=== PATIENT | male | born 1980 | race African-American/Black ===

== ENCOUNTER 2024-09-11 15:54 | Inpatient (IN) | payer SELFPAY ==
[2024-09-11] VITALS (49 sets, daily range): BP systolic 148–232; BP diastolic 87–186; PULSE 60–143; RESP 9–33; TEMP 36.6–36.8; O2SAT 92–100; BMI 32.5
--- NOTE | ~2024-09-11 | XR_ITS ---
HISTORY: rib pain, fall COMPARISON: None TECHNIQUE: 3 views of the right ribs were performed along with a frontal view of the chest. FINDINGS: The cardiomediastinal silhouette is enlarged. Loop recorder projects to the left of midline. The lungs are clear. No acute displaced fracture is appreciated. Bone mineralization is age-appropriate. IMPRESSION: No acute displaced right-sided rib fracture. The lungs are clear. Reviewed, dictated and finalized at location A. OWAVE SUPERVISOR
--- NOTE | ~2024-09-11 | CT_ITS ---
CTA brain carotid Ordering provider: Erin Snow PA-C History: . left diplopia . Comparison: None Technique: CT angiogram head and neck was performed following timed intravenous injection of contrast . Thin slice axial images and reformatted coronal images were obtained. Three dimensional reformatted images of the brain were also obtained using a [employer] workstation. DLP: 1059 mGy-cm FINDINGS: HEAD: --ANTERIOR AND MIDDLE CEREBRAL ARTERIES AND BRANCHES: Normal caliber and contour. --INTERNAL CAROTID ARTERIES: Mild atheromatous disease but no significant stenosis. No occlusion. --BASILAR ARTERY AND BRANCHES: Normal caliber and contour. No atheromatous disease. --POSTERIOR CEREBRAL ARTERIES: Normal caliber and contour --POSTERIOR COMMUNICATING ARTERIES: Not well visualized likely related to congenital absence or small size. --ANEURYSM: None visualized. --BRAIN: Please refer to report of CT head performed the same day. --BONES AND SUPERFICIAL SOFT TISSUES: Please refer to report of CT head performed the same day. --PARANASAL SINUSES AND MASTOIDS: Please refer to report of CT head done the same day. NECK: --RIGHT CERVICAL CAROTID SYSTEM: No significant atheromatous disease of the carotid bulb and proximal internal carotid artery.. Percent stenosis per NASCET criteria is 0%. No carotid dissection. --LEFT CERVICAL CAROTID SYSTEM: No significant atheromatous disease of the carotid bulb and proximal internal carotid artery. Percent stenosis per NASCET criteria is 0%. No carotid dissection. --VERTEBRAL ARTERIES: Normal caliber and contour. --VISUALIZED AORTIC ARCH AND BRANCHING VESSELS: Mild atheromatous disease but no significant stenosis . --SOFT TISSUES: Unremarkable --CERVICAL SPINE: No significant degenerative disease. IMPRESSION: 1. Unremarkable CTA head and neck. Percent stenosis per NASCET criteria is 0% Reviewed, dictated and finalized at location A. GER SCIENCE
--- NOTE | ~2024-09-11 | CT_ITS ---
History: Left-sided double vision PROCEDURE: CT head without contrast. COMPARISON: None TECHNIQUE: Axial imaging of the head performed from the skull base to the vertex without IV contrast. Sagittal a nd coronal reformations obtained. DLP: 605 mGy-cm FINDINGS: The ventricles are normal in size, shape and position. Cavum septum pellucidum is incidentally noted. Decreased attenuation is identified within the periventricular white matter, likely secondary to micr ovascular ischemic disease, far advanced in a patient of this age. Decreased attenuation is identifie d within the left occipital lobe, findings suggesting prior cerebral infarction. There is no mass, mass effect or midline shift. There is no abnormal extra-axial fluid collection or intracranial hemorrhage. Visualized paranasal sinuses are clear. The mastoid air cells are well aerated. No acute displaced fractures within the overlying cranium. Impression: No acute intracranial hemorrhage or suspicious mass effect. Findings within the periventricular white matter, far advanced in a patient of this age. Prior cerebral infarction within the left occipital lobe. Reviewed, dictated and finalized at location A. ICAL REHAB SPECIALIST Impression: No acute intracranial hemorrhage or suspicious mass effect. Findings within the periventricular white matter, far advanced in a patient of this age. Prior cerebral infarction within the left occipital lobe.
--- OUTSIDE RECORDS SUMMARY | 2024-09-11 15:56 | XMS_ITS ---
Author Organization [facility] Address [address] [place] [address] Care Team Providers Care Crocheter Name Role Phone ADRIAN QUEEN MD Primary Care Provider [phone] ZO GALLAGHER [phone] REASON FOR VISIT 3 month f/u Encounters Encounter Location Date Provider Diagnosis [facility] [address] [id number] 07/19/2023 ZO ACOSTA Plan Of Treatment No Information Progress Notes * SKINNY CHICASDOB:1980 (43 yo M)Acc No.[id number]:07/19/2023 Progress Notes Patient: SKINNY COOLEY Provider: Chris Martinez NP :1980 A ge:42 Y S ex:Male Date:07/19/2023 Address:[address] [id number] Pcp:ADRIAN QUEEN MD Subjective: * Chief Complaints: * 1 . 3 month f/u. * Medical History: Objective: * Vitals: Assessment: Plan: * Treatment: * Billing Information: * Visit Code: * Procedure Codes: * Electronic signature of DAVE CASTILLO on 09/11/2024 at 03:56 PM KLYSTROM TUBE TESTER Sign off status: Pending * Provider: Chris Martinez, DIANA Date: 1 09/19/2022 Generated for Isa power/Jean/Erika on: 0 09/11/2024 03:56 PM KLYSTROM TUBE TESTER
--- OUTSIDE RECORDS SUMMARY | 2024-09-11 15:56 | XMS_ITS | Patient Health Record ---
Author Organization [facility] Address [address] [place] [address] Care Team Providers Care Desk Assistant Name Role Phone ADRIAN QUEEN MD Primary Care Provider [phone] Allergies No Known Allergies Reason For Referral No Information Medications Medication SIG (Take, Route, Frequency, Duration) Notes Start Date End Date Status Lisinopril-hydroCHL OROthiazide 20-12.5 MG 1 tablet Orally Once a day for [address] ADRIAN QUEEN Active Coreg 12.5 MG 1 tablet with food Orally Twice a day for [address] ADRIAN QUEEN Active Social History Tobacco Use: Social History Observation Description Date Details (start date - stop date) Never Smoker NA - NA Tobacco Use/Smoking Question Answer Notes Tobacco use: nonsmoker Problems Problem Type SNOMED Code ICD Code Onset Dates Problem Status W/U Status Risk Notes Problem 50963728820084 Morbid (severe) obesity due to excess calories (E66.01) Active confirmed Problem 77759798 Essential (primary) hypertension (I10) Active confirmed Problem [id number] Body mass index [BMI] 40.0-44.9, adult (Z68.41) Active confirmed Plan Of Treatment No Information Medical (General) History Medical History History ICD Code hypertension, obesity Surgical History Surgery Date(Month/Year) denies
--- NOTE | 2024-09-11 16:01 | ECG_ITS ---
Test Date: 2024-09-11 16:11:20 Measurements Intervals [place] Rate: 91 P: 23 NM: 149 QRS: -20 QRSD: 94 T: 145 QT: 370 QTc: 455 Interpretive Statements SINUS RHYTHM LEFT ATRIAL ENLARGEMENT LEFT VENTRICULAR HYPERTROPHY AND ST-T CHANGE BORDERLINE R WAVE PROGRESSION, ANTERIOR LEADS BORDERLINE T WAVE ABNORMALITY- INFERIOR LEADS BASELINE ARTIFACT- I, II, III, AVR, AVL, AVF, V1, V3 BORDERLINE ECG No previous ECG available for comparison Electronically Signed On 09-11-2024 16:13:16 TAX COMPLIANCE REPRESENTATIVE by Addy Ladd D.O.
--- NOTE | 2024-09-11 16:03 | ED_ITS ---
HPI - Fall General Chief Complaint: Fall <Erin Snow PA-C - Last Filed: 09/13/24 17:00> Stated Complaint: fall <Erin Snow PA-C - Last Filed: 09/13/24 17:00> Time Seen by Provider: 09/11/24 17:03 <Erin Snow PA-C - Last Filed: 09/13/24 17:00> Focused HPI: 43-year-old male with a history of CVA in June of 2023 and untreated hypertension presents to the emergency department with mother at bedside for a fall that occurred last night and left side vision changes. Patient states he fell in the bathroom around 9:00 p.m. after slipping and falling, injuring his right ribs. He did not hit his head or lose consciousness. Denies other injuries acquired. States he went to bed the side around 11 or 12:00 p.m. in his normal state of health but when he woke up this morning he noticed diplopia in the left eye which is been new. Denies other neurologic deficits including focal numbness or weakness. Denies chest pain or shortness of breath, abdominal pain. He states he stopped taking his medications approximately 5 months ago after he moved in with his mother. GENERAL: Well-appearing, well-nourished, and in no acute distress. HEAD: Normocephalic, atraumatic. CHEST: Clear to auscultation. ?No respiratory distress. HEART: Regular rate and rhythm.? NEURO: ?Alert and oriented x3. Patient screened in triage and initial orders placed.? ?Additional care and disposition to be based upon?diagnostic testing and treatment. <Erin Snow PA-C - Last Filed: 09/13/24 17:00> Focused HPI: 43-year-old male with a history of CVA in June of 2023 and untreated hypertension presents to the emergency department with mother at bedside for a fall that occurred last night and left side vision changes. Patient states he fell in the bathroom around 9:00 p.m. after slipping and falling, injuring his right ribs. He did not hit his head or lose consciousness. Denies other injuries acquired. States he went to bed the side around 11 or 12:00 p.m. in his normal state of health but when he woke up this morning he noticed diplopia in the left eye which is been new. Denies other neurologic deficits including focal numbness or weakness. Denies chest pain or shortness of breath, abdominal pain. He states he stopped taking his medications approximately 5 months ago after he moved in with his mother. GENERAL: Well-appearing, well-nourished, and in no acute distress. HEAD: Normocephalic, atraumatic. CHEST: Clear to auscultation. ?No respiratory distress. HEART: Regular rate and rhythm.? NEURO: ?Alert and oriented x3. Patient screened in triage and initial orders placed.? ?Additional care and disposition to be based upon?diagnostic testing and treatment. <Gege Valdovinos PA-C - Last Filed: 09/11/24 20:51> Related Data Home Medications: Home Medications ?Medication ?Instructions ?Recorded ?Confirmed ?Last Taken ?Type No Home Medications 09/11/24 09/11/24 Unknown History <Erin Snow PA-C - Last Filed: 09/13/24 17:00> Allergies/Adverse Reactions: Allergies Allergy/AdvReac Type Severity Reaction Status Date / Time No Known Allergies Allergy Verified 09/11/24 23:02 <Erin Snow PA-C - Last Filed: 09/13/24 17:00> Review of Systems 2 Review of Systems: CONSTITUTIONAL: Denies fever EYES: Reports visual changes. Denies redness, or discharge. CARDIOVASCULAR: Denies chest pain, or edema. RESPIRATORY: Denies dyspnea. GASTROINTESTINAL: Denies vomiting NEUROLOGIC: Denies numbness, or weakness. <Gege Valdovinos PA-C - Last Filed: 09/11/24 20:51> All systems reviewed & are unremarkable except as noted in HPI and below < Gege Valdovinos PA-C - Last Filed: 09/11/24 20:51> PMFSH Past Medical History Medical History: Medical History (Updated 09/11/24 @ 20:48 by Gege Valdovinos PA-C) History of stroke History of hyperlipidemia History of hypertension <Erin Snow PA-C - Last Filed: 09/13/24 17:00> Family History Family History: Family History Mother Hypertension Father Diabetes mellitus Sibling No active medical problems Sibling Congestive heart failure <Erin Snow PA-C - Last Filed: 09/13/24 17:00> Social History Social History: Social History (Updated 09/11/24 @ 17:39 by Gege Valdovinos PA-C) Smoking status: Never smoker Second hand tobacco smoke exposure: No Alcohol intake: never Substance use: never Substance use type: does not use Do You Feel Safe in your Home?: Yes Lack of Transportation: YES Lack of Food: Never True Current Housing: I Have Housing Concerned About Future Housing: No Difficulty Paying Gas/Electric Bills: No Difficulty Paying for Meds: YES Currently Unemployed: No Education: High School Diploma/GED Difficulty w/ Childcare or Family Care: No Spiritual care concerns: No <Erin Snow PA-C - Last Filed: 09/13/24 17:00> Exam 2 Narrative: GENERAL: Well-appearing, well-nourished, and in no acute distress. HEAD: Normocephalic, atraumatic. EYES: PERRLA and EOMI. ENT: Nares clear, no rhinorrhea or epistaxis. Mucous membranes moist. Oropharynx without tonsillar hypertrophy exudate or other lesions. Bilateral TMs pearly ruano non-bulging NECK: Supple. No adenopathy or masses. CHEST: Clear to auscultation. No respiratory distress. No wheezes rales or rhonchi HEART: Regular rate and rhythm. No murmur heard. Normal peripheral pulses. EXTREMITIES: Normal range of motion. No edema or obvious deformity. Strength equal in bilateral upper and lower extremities (5/5) SKIN: Warm, dry, no rash. NEURO: No focal deficits. Alert and oriented x3. Cranial nerves 2-12 grossly intact PSYCH: Normal mood and affect <Gege Valdovinos PA-C - Last Filed: 09/11/24 20:51> Course Course Emergency Course: Patient and family updated on workup and need for admission <Gege Valdovinos PA-C - Last Filed: 09/11/24 20:51> Consultations Consultation #1: Spoke with hospitalist about patient and workup who accepts admission < Gege Valdovinos PA-C - Last Filed: 09/11/24 20:51> Date: 09/11/24 <Gege Valdovinos PA-C - Last Filed: 09/11/24 20:51> Vital Signs Vital signs: Vital Signs Temperature 97.8 F 09/11/24 15:56 Pulse Rate 102 H 09/11/24 15:56 Respiratory Rate 17 09/11/24 15:56 Blood Pressure 232/160 H 09/11/24 15:56 Pulse Oximetry 100 09/11/24 15:56 Oxygen Delivery Room Air 09/11/24 15:56 Temperature 98.0 F 09/13/24 16:45 Pulse Rate 96 09/13/24 16:45 Respiratory Rate 20 09/13/24 16:45 Blood Pressure 163/66 H 09/13/24 16:45 Pulse Oximetry 98 09/13/24 16:45 Oxygen Delivery Room Air 09/13/24 16:00 <Erin Snow PA-C - Last Filed: 09/13/24 17:00> Vital Signs Temperature 97.8 F 09/11/24 15:56 Pulse Rate 102 H 09/11/24 15:56 Respiratory Rate 17 09/11/24 15:56 Blood Pressure 232/160 H 09/11/24 15:56 Pulse Oximetry 100 09/11/24 15:56 Oxygen Delivery Room Air 09/11/24 15:56 Temperature 98.0 F 09/13/24 16:45 Pulse Rate 96 09/13/24 16:45 Respiratory Rate 20 09/13/24 16:45 Blood Pressure 163/66 H 09/13/24 16:45 Pulse Oximetry 98 09/13/24 16:45 Oxygen Delivery Room Air 09/13/24 16:00 <Gege Valdovinos PA-C - Last Filed: 09/11/24 20:51> MDM - Fall MDM Narrative Medical decision making narrative: Patient presents to the emergency department after a fall yesterday. Endorsing some rib pain. He also reports waking up this morning with some blurry vision in the left thigh. He does not believe he hit his head or lost consciousness. Patient has history of hypertension and previous CVA. Reports he has not taken any of his medications over the last 5 months. His blood pressure is elevated to 200 systolic upon arrival. He was given hydralazine and carvedilol with improvement. Most recent blood pressures in the 70s. CBC with mild leukocytosis to 11.4. Metabolic panel with creatinine of 1.74, unsure patient's baseline. EKG without acute ST changes, his baseline troponin is elevated at 0.040. Urine with 2+ protein. CT brain without acute findings. CTA head and neck unremarkable. Chest x-ray without acute cardiopulmonary abnormality or evidence of acute displaced rib fracture. Patient and family updated on workup and need for admission. Spoke with hospitalist about patient and workup who accepts admission <Gege Valdovinos PA-C - Last Filed: 09/11/24 20:51> Differential Diagnosis Differential diagnosis: Likely syncope, concussion with loss of consciousness, concussion without loss of consciousness and other (Subdural hematoma, CVA, electrolyte derangement, arrhythmia, hypertensive urgency, chronic hypertension) <Gege Valdovinos PA-C - Last Filed: 09/11/24 20:51> Lab Data Attestation: I reviewed the patient's lab results. <Gege Valdovinos PA-C - Last Filed: 09/11/24 20:51> Result diagrams: 09/12/24 17:18 09/12/24 17:18 <Erin Snow PA-C - Last Filed: 09/13/24 17:00> Labs: Lab Results 09/11/24 Range/Units 16:18 WBC 11.4 H (4.5-10.0) K/mm3 RBC 5.08 (4.6-6.20) M/mm3 Hgb 13.8 L (14.0-18.0) g/dL Hct 42.6 (42.0-52.0) % MCV 83.9 (80-100) fl MCH 27.2 (26-34) pg MCHC 32.4 (32-36) g/dl RDW 14.1 (11.5-14.5) % Plt Count 301 (150-375) k/mm3 MPV 11.4 H (7.4-10.4) fl Immature Gran % (Auto) 0.3 (0-0.5) % Neut % (Auto) 66.6 (45.5-73.1) % Lymph % (Auto) 22.0 (18.3-44.2) % [place] % (Auto) 8.1 (2.6-8.5) % Eos % (Auto) 2.4 (0-4.4) % Baso % (Auto) 0.6 (0.2-1.2) % Lymph # (Auto) 2.51 (0.9-3.2) K/mm3 [place] # (Auto) 0.9 H (0.1-0.6) K/mm3 Eos # (Auto) 0.3 (0-0.3) K/mm3 Baso # (Auto) 0.1 (0.0-0.1) K/mm3 Abs Immat Gran (auto) 0.03 (0.00-0.031) K/mm3 Absolute Neuts (auto) 7.6 H (1.3-6.7) K/mm3 Absolute Nucleated RBC 0.000 (0.0-0.012) K/mm3 Nucleated RBC % 0.0 (0.0-0.2) % PT 14.3 (11.1-14.7) Seconds INR 1.1 APTT 44.9 H (22.3-36.8) Seconds Sodium 140 (137-145) mmol/L Potassium 3.4 (3.4-5.0) mmol/L Chloride 102 (98-107) mmol/L Carbon Dioxide 30 (22-30) mmol/L Anion Gap 8 (4-12) mmol/L BUN 16 (9-20) mg/dL Creatinine 1.74 H (0.7-1.3) mg/dL Estim Creat Clear Calc Not Reportable Estimated GFR 52 L (59 - ) Glucose 108 (65-110) mg/dL POC Capillary Glucose 108 H (65-105) mg/dl Calcium 9.0 (8.4-10.2) mg/dL Total Bilirubin 0.7 (0.2-1.3) mg/dL AST 19 (17-59) U/L ALT 27 (6-50) U/L Alkaline Phosphatase 85 (38-126) U/L Troponin I 0.040 H* (0.000-0.034) ng/mL Total Protein 8.0 (6.3-8.2) g/dL Albumin 4.0 (3.5-5.1) g/dL Urine Color Yellow (Yellow) Urine Appearance Cloudy H (Clear) Urine pH 7.5 (5.0-9.0) Ur Specific [place] 1.020 (1.001-1.035) Urine Protein 2+ H (Negative) mg/dL Urine Glucose (UA) Negative (Negative) mg/dL Urine Ketones Negative (Negative) mg/dL Ur Blood (Man) Negative (Negative) Urine Nitrate Negative (Negative) Urine Bilirubin Negative (Negative) Urine Urobilinogen 0.2 (<2.0) mg/dL Leukocyte Esterase Rfl Negative (Negative) TYLER/UL Urine RBC 0-2 (0-2) /hpf Urine WBC 0-5 (0-3) /hpf Ur Squamous Epith Cells None seen (Few) /hpf Urine Bacteria None seen /hpf Urine Casts 3-5 Ur Random Sodium 114 meq/L Urine Creatinine 126.7 mg/dL Urine Opiates Screen Negative (Negative) Urine Methadone Screen Negative (Negative) Ur Barbiturates Screen Negative (Negative) Ur Phencyclidine Scrn Negative (Negative) Ur Amphetamine Screen Negative (Negative) U Benzodiazepines Scrn Negative (Negative) Urine Cocaine Screen Negative (Negative) U Cannabinoids Screen Negative (Negative) <Erin Snow PA-C - Last Filed: 09/13/24 17:00> Lab Results 09/11/24 Range/Units 16:18 WBC 11.4 H (4.5-10.0) K/mm3 RBC 5.08 (4.6-6.20) M/mm3 Hgb 13.8 L (14.0-18.0) g/dL Hct 42.6 (42.0-52.0) % MCV 83.9 (80-100) fl MCH 27.2 (26-34) pg MCHC 32.4 (32-36) g/dl RDW 14.1 (11.5-14.5) % Plt Count 301 (150-375) k/mm3 MPV 11.4 H (7.4-10.4) fl Immature Gran % (Auto) 0.3 (0-0.5) % Neut % (Auto) 66.6 (45.5-73.1) % Lymph % (Auto) 22.0 (18.3-44.2) % [place] % (Auto) 8.1 (2.6-8.5) % Eos % (Auto) 2.4 (0-4.4) % Baso % (Auto) 0.6 (0.2-1.2) % Lymph # (Auto) 2.51 (0.9-3.2) K/mm3 [place] # (Auto) 0.9 H (0.1-0.6) K/mm3 Eos # (Auto) 0.3 (0-0.3) K/mm3 Baso # (Auto) 0.1 (0.0-0.1) K/mm3 Abs Immat Gran (auto) 0.03 (0.00-0.031) K/mm3 Absolute Neuts (auto) 7.6 H (1.3-6.7) K/mm3 Absolute Nucleated RBC 0.000 (0.0-0.012) K/mm3 Nucleated RBC % 0.0 (0.0-0.2) % PT 14.3 (11.1-14.7) Seconds INR 1.1 APTT 44.9 H (22.3-36.8) Seconds Sodium 140 (137-145) mmol/L Potassium 3.4 (3.4-5.0) mmol/L Chloride 102 (98-107) mmol/L Carbon Dioxide 30 (22-30) mmol/L Anion Gap 8 (4-12) mmol/L BUN 16 (9-20) mg/dL Creatinine 1.74 H (0.7-1.3) mg/dL Estim Creat Clear Calc Not Reportable Estimated GFR 52 L (59 - ) Glucose 108 (65-110) mg/dL POC Capillary Glucose 108 H (65-105) mg/dl Calcium 9.0 (8.4-10.2) mg/dL Total Bilirubin 0.7 (0.2-1.3) mg/dL AST 19 (17-59) U/L ALT 27 (6-50) U/L Alkaline Phosphatase 85 (38-126) U/L Troponin I 0.040 H* (0.000-0.034) ng/mL Total Protein 8.0 (6.3-8.2) g/dL Albumin 4.0 (3.5-5.1) g/dL Urine Color Yellow (Yellow) Urine Appearance Cloudy H (Clear) Urine pH 7.5 (5.0-9.0) Ur Specific [place] 1.020 (1.001-1.035) Urine Protein 2+ H (Negative) mg/dL Urine Glucose (UA) Negative (Negative) mg/dL Urine Ketones Negative (Negative) mg/dL Ur Blood (Man) Negative (Negative) Urine Nitrate Negative (Negative) Urine Bilirubin Negative (Negative) Urine Urobilinogen 0.2 (<2.0) mg/dL Leukocyte Esterase Rfl Negative (Negative) TYLER/UL Urine RBC 0-2 (0-2) /hpf Urine WBC 0-5 (0-3) /hpf Ur Squamous Epith Cells None seen (Few) /hpf Urine Bacteria None seen /hpf Urine Casts 3-5 Ur Random Sodium 114 meq/L Urine Creatinine 126.7 mg/dL Urine Opiates Screen Negative (Negative) Urine Methadone Screen Negative (Negative) Ur Barbiturates Screen Negative (Negative) Ur Phencyclidine Scrn Negative (Negative) Ur Amphetamine Screen Negative (Negative) U Benzodiazepines Scrn Negative (Negative) Urine Cocaine Screen Negative (Negative) U Cannabinoids Screen Negative (Negative) <GUTIERREZ Cameron Last Filed: 09/11/24 20:51> Imaging Data Radiologist's impression: ITS Impressions Ribs w/Chest X-Ray 09/11/24 17:11 IMPRESSION: No acute displaced right-sided rib fracture. The lungs are clear. Head CT 09/11/24 18:26 Impression: No acute intracranial hemorrhage or suspicious mass effect. Findings within the periventricular white matter, far advanced in a patient of this age. Prior cerebral infarction within the left occipital lobe. Head/Neck CTA 09/11/24 18:39 IMPRESSION: 1. Unremarkable CTA head and neck. Percent stenosis per NASCET criteria is 0% <GUTIERREZ Cameron Last Filed: 09/11/24 20:51> Critical Care Time Critical Care Time Critical Care Time: Yes <GUTIERREZ Cameron Last Filed: 09/11/24 20:51> Total Critical Care Time: 35 <GUTIERREZ Cameron Last Filed: 09/11/24 20:51> Discharge Plan Discharge Clinical Impression: Hypertensive urgency <GUTIERREZ Kilgore Last Filed: 09/13/24 17:00> Patient Disposition: Still a Patient <GUTIERREZ Kilgore Last Filed: 09/13/24 17:00> Condition: Serious <Erin Snow PA-C - Last Filed: 09/13/24 17:00>
[2024-09-11 16:21] LABS: Glucose Point of Care 108 mg/dl (65-105)
[2024-09-11 16:32] LABS: Basophils Absolute Auto 0.1 K/mm3 (0.0-0.1); Basophils Percent Auto 0.6 % (0.2-1.2); Eosinophils Absolute Auto 0.3 K/mm3 (0-0.3); Eosinophils Percent Auto 2.4 % (0-4.4); Hematocrit 42.6 % (42.0-52.0); Hemoglobin 13.8 g/dL (14.0-18.0); Immature Granulocyte Absolute 0.03 K/mm3 (0.00-0.031); Immature Granulocyte Percent A 0.3 % (0-0.5); Lymphocytes Absolute Auto 2.51 K/mm3 (0.9-3.2); Mean Corpuscular HGB Conc 32.4 g/dl (32-36); Mean Corpuscular Hemoglobin 27.2 pg (26-34); Mean Corpuscular Volume 83.9 fl (80-100); Mean Platelet Volume 11.4 fl (7.4-10.4); Monocytes Absolute Auto 0.9 K/mm3 (0.1-0.6); Monocytes Percent Auto 8.1 % (2.6-8.5); Neutrophils Absolute Auto 7.6 K/mm3 (1.3-6.7); Neutrophils Percent Auto 66.6 % (45.5-73.1); Platelet Count Result 301 k/mm3 (150-375); Red Blood Count 5.08 M/mm3 (4.6-6.20); Red Cell Distribution Width 14.1 % (11.5-14.5); White Blood Count 11.4 K/mm3 (4.5-10.0)
[2024-09-11 16:44] LABS: INR 1.1; Partial Thromboplastin Time 44.9 Seconds (22.3-36.8); Prothrombin Time 14.3 Seconds (11.1-14.7)
[2024-09-11 16:53] LABS: Alanine Aminotransferase 27 U/L (6-50); Alkaline Phosphatase 85 U/L (38-126); Anion Gap 8 mmol/L (4-12); Aspartate Amino Transferase 19 U/L (17-59); Bilirubin,Total 0.7 mg/dL (0.2-1.3); Blood Urea Nitrogen 16 mg/dL (9-20); Carbon Dioxide 30 mmol/L (22-30); Chloride 102 mmol/L (98-107); Estimated Glomerular Filt Rate 52; Glucose 108 mg/dL (65-110); Potassium 3.4 mmol/L (3.4-5.0); Sodium 140 mmol/L (137-145)
[2024-09-11] MEDS: hydrALAZINE HCL 20 MG/ML VIAL 10 MG IV PUSH ×2 (17:40→20:05)
[2024-09-11 18:15] LABS: Add Urine Microscopic? YES; Appearance Urine Cloudy (Clear); Bacteria Urine None Seen /hpf; Bilirubin Urine Negative (Negative); Blood Urine Negative (Negative); Color Urine Yellow (Yellow); Glucose Urine UA Negative (Negative); Ketones Urine Negative (Negative); Leukocyte Esterase Ur Negative LEU/UL (Negative); Nitrate Urine Negative (Negative); Protein Urine 2+ mg/dL (Negative); RBC Urine 0-2 /hpf (0-2); Squamous Epithelial Cell Urine None Seen /hpf (Few); Urobilinogen Urine 0.2 mg/dL (<2.0); WBC Urine 0-5 /hpf (0-3); pH Urine 7.5 (5.0-9.0)
--- OUTSIDE RECORDS SUMMARY | 2024-09-11 18:19 | XMS_ITS | Referral Summary ---
Author Organization [facility] [employer] Address [address] [place] [place] [address] Care Team Providers Care Director Community Health Nursing Name Role Phone Unavailable Primary Care Provider Unavailabl e Source Comments [facility] [employer],non-owned Affiliates and Associated Physician Practices is amultiple site organization consisting of ambulatory clinics and hospital sitesin [place], [place], [place] and [place]. This disclosure is being madepursuant to the Care Everywhere program and may not contain all information available regarding this patient. Last updated 18.[employer] Allergies No known active allergies Medications * Be aware that medications may not be up to date on this document. Alwaysverify current medications with the patient. Medication Sig Dispensed Refills Start Date End Date Status amLODIPine (NORVASC) 5 MG tablet Take 1 tablet by mouth once daily 30 tablet 02/01/2019 Active omeprazole (PRILOSEC) 20 MG capsule Take 1 capsule by mouth once daily 30 capsule 02/01/2019 Active benzonatate (TESSALON) 200 MG capsule Take 1 capsule by mouth 3 times daily as needed for Cough 30 capsule 10/11/2019 Active Additional Information Patient not taking.Reported on 08/02/2022 guaiFENesin-dextro methorphan (ROBITUSSIN-DM) 10-100 MG/5ML syrup Take 5 mL by mouth every 6 hours as needed for Cough 237 mL 10/11/2019 Active Additional Information Patient not taking.Reported on 08/02/2022 lisinopril-hydroCH LOROthiazide (PRINZIDE; ZESTORETIC) 10-12.5 MG tablet Take 1 (one) tablet by mouth once daily 60 tablet 11/24/2020 Active Additional Information Patient not taking.Reported on 08/02/2022 carvedilol (COREG) 12.5 MG tablet Take 1 (one) tablet by mouth 2 times daily with morning and evening meal 120 tablet 11/24/2020 Active Active Problems No known active problems Social History Tobacco Use Types Packs/Day Years Used Date Smoking Tobacco: Never Smokeless Tobacco: Never Tobacco Cessation:Counseling Given: Not Answered Alcohol Use Standard Drinks/Week Comments Never 0 (1 standard drink = 0.6 oz pur e alcohol) Sex and Gender Information Value Date Recorded Sex Assigned at Not on file Gender Identity Not on file Sexual Orientation Not on file Last Filed Vital Signs Vital Sign Reading Time Taken Comments Blood Pressure 153/101 08/02/2022 10:10 AM [employer] unable tot guillermo bp med today Pulse 97 08/02/2022 10:07 AM [employer] Temperature 37.6 C (99.7 F) 08/02/2022 10:07 AM [employer]ER Respiratory Rate 20 08/02/2022 10:0 7 AM [employer] Oxygen Saturation 97% 08/02/2022 10: 07 AM [employer]ER Inhaled Oxygen Concentration - - Weight 94.8 kg (209 lb) 08/02/2022 10:0 7 AM [employer] Height 165.1 cm (5' 5 ) 08/02/2022 10:0 7 AM [employer]ER Body Mass Index 34.78 08/02/2022 10:07 AM [employer]ER Plan of Treatment Not on file Procedures Procedure Name Priority Date/Time Associated Diagnosis Comments COMPREHENSIVE METABOLIC PANEL STAT 11/24/2020 10:28 AM CDT from Last 3 Months or Most Recently Relevant to Health Maintenance Results * (ABNORMAL) COMPREHENSIVE METABOLIC PANEL (11/24/2020 10:28 AM CDT) Glucose 110(H) 70 - 105 mg/dL 11/24/2020 10:59 AM CDT [facility] Sodium 142 136 - 145 mmol/L 11/24/2020 10:59 AM CDT [facility] Potassium 3.3(L) 3.5 - 5.1 mmol/L 11/24/2020 10:59 AM CDT [facility] Chloride 104 98 - 107 mmol/L 11/24/2020 10:59 AM CDT [facility] CO2 28 23 - 31 mmol/L 11/24/2020 10:59 AM CDT [facility] Calcium 9.0 8.4 - 10.4 mg/dL 11/24/2020 10:59 AM CDT [facility] Anion Gap 10 8 - 18 mmol/L 11/24/2020 10:59 AM CDT [facility] Comment:Attention clinician: Reference Range change. BUN 16 8.9 - 20.6 mg/dL 11/24/2020 10:59 AM CDT [facility] Creatinine 1.40(H) 0.72 - 1.25 mg/dL 11/24/2020 10:59 AM CDT [facility] Alkaline Phosphatase 66 40 - 150 U/L 11/24/2020 10:59 AM CDT [facility] Comment:Attention clinician: Reference Range change. ALT 26 0 - 61 U/L 11/24/2020 10:59 AM CDT [facility] AST 15 5 - 34 U/L 11/24/2020 10:59 AM CDT [facility] Protein Total 7.9 6.4 - 8.3 gm/dL 11/24/2020 10:59 AM CDT [facility] Albumin 3.8 3.5 - 5.2 gm/dL 11/24/2020 10:59 AM CDT [facility] Bilirubin Total 0.4 0.2 - 1.2 mg/dL 11/24/2020 10:59 AM CDT [facility] Comment:Attention clinician: Reference Range change. eGFR by MDRD 56(L) >60 mL/min/1.7 3m2 11/24/2020 10:59 AM CDT [facility] eGFR by MDRD >60 >60 mL/min/1.7 3m2 11/24/2020 10:59 AM T [facility] Blood BLOOD SPECIMEN / Unknown Venipuncture / Unknown 11/24/2020 10:28 AM CDT 11/24/2020 10:38 AM CDT Edmundo Dang PA-C LAB - CHEMISTRY MAGDALENA Perrin Organization Address City/State/ZIP Co de Phone Number [facility] [address] [place] [id number] from Last 3 Months or Most Recently Relevant to Health Maintenance
--- OUTSIDE RECORDS SUMMARY | 2024-09-11 18:19 | XMS_ITS | Encounter Summary ---
Author Organization [employer] Address 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
--- OUTSIDE RECORDS SUMMARY | 2024-09-11 18:19 | XMS_ITS | Encounter Summary ---
Author Organization [facility] Address [address] [place] [address] Care Team Providers Care Customer Experience Leader Name Role Phone Lucio Gaona DO Primary Care Provi zaira Reason for Visit * Reason Onset Date Comments Paperwork 07/17/2023 Encounter Details Date Type Department Care Team (Late st Contact Info) Description 07/17/2023 Telephone [facility] - [address] [place] [phone] Lucio Gaona DO [address] [place] [phone] Paperwork (/) Social History Tobacco Use Types Packs/Day Years Used Date Smoking Tobacco: Never Smokeless Tobacco: Never Alcohol Use Standard Drinks/Week Comments Not Currently 0 (1 standard drink = 0.6 oz pur e alcohol) Feeling Safe Answer Date Recorded Are you in a relationship wi th someone who hurts you emotionally and/or physically? 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 States she was told it would be put on the doctor's desk. States they need to get this paperwork back JANEE as he willlose his job if not completed by Saturday. Please call and advise. 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
--- OUTSIDE RECORDS SUMMARY | 2024-09-11 18:19 | XMS_ITS | Clinical Summary ---
Author Organization [facility] Address [address] [facility] [place] [address] Care Team Providers Care Shuttlecock Feather Trimmer Name Role Phone Unavailable Primary Care Provider Unavailabl e Source Comments [employer] [facility],non-owned Affiliates and Associated Physician Practices is amultiple site organization consisting of ambulatory clinics and hospital sitesin [place], [place], [place] and [place]. This disclosure is being madepursuant to the Care Everywhere program and may not contain all information available regarding this patient. Last updated 18.[employer] Allergies No known active allergies Medications * [...] Comments Blood Pressure 153/101 08/02/2022 10:10 AM FRAMING CARPENTER unable tot guillermo bp med today Pulse 97 08/02/2022 10:07 AM FRAMING CARPENTER Temperature 37.6 C (99.7 F) 08/02/2022 10:07 AM FRAMING CARPENTER Respiratory Rate 20 08/02/2022 10:0 7 AM FRAMING CARPENTER Oxygen Saturation 97% 08/02/2022 10: 07 AM FRAMING CARPENTER Inhaled Oxygen Concentration - - Weight 94.8 kg (209 lb) 08/02/2022 10:0 7 AM FRAMING CARPENTER Height 165.1 cm (5' 5 ) 08/02/2022 10:0 7 AM FRAMING CARPENTER Body Mass Index 34.78 08/02/2022 10:07 AM FRAMING CARPENTER Plan of Treatment Health Maintenance Due Date Last Done Comments COLOGUARD (AGES 45-75) - COL ON CA SCREENING 1978 COLON MONITORING 1978 COLONOSCOPY - COLON CA SCREENING 1978 CT COLONOGRAPHY - COLON CA SCREENING 1978 Colorectal Cancer Screening 1978 FIT - COLON CA SCREENING 1978 FLEX SIG - COLON CA SCREENING 1978 LIPID TESTING 1978 HIV SCREENING 1993 HEPATITIS C SCREENING 10/26/1996 DTAP/TDAP/TD VACCINES (1 - Tdap) 1997 HEPATITIS B VACCINE (1 of 3 - 19+ 3-dose series) 1997 SCREENING FOR DIABETES 11/25/2023 , 02/01/2019 COVID-19 VACCINE (3 - 2023-2 5 season) 2024 04/19/2021, 03/23/2021 INFLUENZA VACCINE (#1) 2024 DEPRESSION SCREENING 08/05/2024 ZOSTER VACCINE (1 of 2) 2028 HIB VACCINE Aged Out No longer eligi ble based on patient's age to complete this topic HPV VACCINE Aged Out No longer eligi ble based on patient's age to complete this topic MENINGOCOCCAL (Group B) VACCINE Aged Out No longer eligible b ased on patient's age to complete this topic MENINGOCOCCAL VACCINE Aged Out No jailene jarred eligible based on patient's age to complete this topic PNEUMOCOCCAL VACCINE Aged Out No long er eligible based on patient's age to complete this topic Procedures Procedure Name Priority Date/Time Associated Diagnosis Comments COMPREHENSIVE METABOLIC PANEL STAT 11/24/2020 10:28 AM CDT from Last 3 Months or Most Recently Relevant to Health Maintenance Results * (ABNORMAL) COMPREHENSIVE METABOLIC PANEL (11/24/2020 10:28 AM CDT) Glucose 110(H) 70 - 105 mg/dL 11/24/2020 10:59 AM CDT [facility] Sodium 142 136 - 145 mmol/L 11/24/2020 10:59 AM CDT [facility] Potassium 3.3(L) 3.5 - 5.1 mmol/L 11/24/2020 10:59 AM CDT [facility] Chloride 104 98 - 107 mmol/L 11/24/2020 10:59 AM CDT [facility] CO2 28 23 - 31 mmol/L 11/24/2020 10:59 AM CDT [facility] Calcium 9.0 8.4 - 10.4 mg/dL 11/24/2020 10:59 AM CDT [facility] Anion Gap 10 8 - 18 mmol/L 11/24/2020 10:59 AM CDT [facility] Comment:Attention clinician: Reference Range change. BUN 16 8.9 - 20.6 mg/dL 11/24/2020 10:59 AM CDT [facility] Creatinine 1.40(H) 0.72 - 1.25 mg/dL 11/24/2020 10:59 AM CDT [facility] Alkaline Phosphatase 66 40 - 150 U/L 11/24/2020 10:59 AM CDT [facility] Comment:Attention clinician: Reference Range change. ALT 26 0 - 61 U/L 11/24/2020 10:59 AM CDT [facility] AST 15 5 - 34 U/L 11/24/2020 10:59 AM CDT [facility] Protein Total 7.9 6.4 - 8.3 gm/dL 11/24/2020 10:59 AM CDT [facility] Albumin 3.8 3.5 - 5.2 gm/dL 11/24/2020 10:59 AM CDT [facility] Bilirubin Total 0.4 0.2 - 1.2 mg/dL 11/24/2020 10:59 AM CDT [facility] Comment:Attention clinician: Reference Range change. eGFR by MDRD 56(L) >60 mL/min/1.7 3m2 11/24/2020 10:59 AM CDT [facility] eGFR by MDRD >60 >60 mL/min/1.7 3m2 11/24/2020 10:59 AM CDT [facility] Blood BLOOD SPECIMEN / Unknown Venipuncture / Unknown 11/24/2020 10:28 AM CDT 11/24/2020 10:38 AM CDT Edmundo Dang PA-C LAB - CHEMISTRY [facility] Organization Address City/State/ZIP Co de Phone Number [facility] [address] [place] [id number] from Last 3 Months or Most Recently Relevant to Health Maintenance
--- OUTSIDE RECORDS SUMMARY | 2024-09-11 18:19 | XMS_ITS | Patient Health Summary ---
Author Organization [facility] [employer] Address [address] [place] [address] Care Team Providers Care Interlocker Maintainer Name Role Phone Unavailable Primary Care Provider Unavailabl e Note from [facility] [employer] [facility],non-owned Affiliates and Associated Physician Practices is amultiple site organization consisting of ambulatory clinics and hospital sitesin [place], [place], [place] and [place]. This disclosure is being madepursuant to the Care Everywhere program and may not contain all information available regarding this patient. Last updated 18.[facility] [employer] Allergies No known active allergies Medications * Be aware that medications may not be up to date on this document. Alwaysverify current medications with the patient. * amLODIPine (NORVASC) 5 MG tablet(Started 02/01/2019) Take 1 tablet by mouth once daily * omeprazole (PRILOSEC) 20 MG capsule(Started 02/01/2019) Take 1 capsule by mouth once daily * benzonatate (TESSALON) 200 MG capsule(Started 10/11/2019) Take 1 capsule by mouth 3 times daily as needed for Cough * guaiFENesin-dextromethorphan (ROBITUSSIN-DM) 10-100 MG/5ML syrup(Started 10/11/2019) Take 5 mL by mouth every 6 hours as needed for Cough * lisinopril-hydroCHLOROthiazide (PRINZIDE; ZESTORETIC) 10-12.5 MG tablet (Started 11/24/2020) Take 1 (one) tablet by mouth once daily * carvedilol (COREG) 12.5 MG tablet(Started 11/24/2020) Take 1 (one) tablet by mouth 2 times daily with morning and evening meal Active Problems No known active problems Social [...] Comments Blood Pressure 153/101 08/02/2022 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 unable tot guillermo bp med today Pulse 97 08/02/2022 10:07 AM HOT HEAD MACHINE OPERATOR Temperature 37.6 C (99.7 F) 08/02/2022 10:07 AM HOT HEAD MACHINE OPERATOR Respiratory Rate 20 08/02/2022 10:0 7 AM HOT HEAD MACHINE OPERATOR Oxygen Saturation 97% 08/02/2022 10: 07 AM HOT HEAD MACHINE OPERATOR Inhaled Oxygen Concentration - - Weight 94.8 kg (209 lb) 08/02/2022 10:0 7 AM HOT HEAD MACHINE OPERATOR Height 165.1 cm (5' 5 ) 08/02/2022 10:0 7 AM HOT HEAD MACHINE OPERATOR Body Mass Index 34.78 08/02/2022 10:07 AM HOT HEAD MACHINE OPERATOR Procedures * STREP A SCREEN - POCT (IP) URGENT CARE(Performed 08/02/2022) Performed for Influenza A * INFLUENZA A+B - POCT (IP) URGENT CARE(Performed 08/02/2022) Performed for Influenza A * SARS-COV-2 (COVID-19) AG (IP) POCT(Performed 08/02/2022) Performed for Influenza A * CARDIAC EKG ORDER(Performed 11/28/2020) * CARDIAC EKG ORDER(Performed 11/25/2020) * TROPONIN I(Performed 11/24/2020) * TROPONIN I(Performed 11/24/2020) * ECHOCARDIOGRAM 2D WITH DOPPLER(Performed 11/24/2020) Performed for Elevated brain natriuretic peptide (BNP) level * URINE MICROSCOPIC ONLY(Performed 11/24/2020) * URINALYSIS REFLEX TO MICROSCOPIC NO CULTURE(Performed 11/24/2020) * XR CHEST 1VW PORTABLE(Performed 11/24/2020) Performed for Acute nonintractable headache, unspecified headache type, Chest pain, unspecified type, Hypertension, unspecified type * B-TYPE NATRIURETIC PEPTIDE(Performed 11/24/2020) * TROPONIN I(Performed 11/24/2020) * COMPREHENSIVE METABOLIC PANEL(Performed 11/24/2020) * CBC W AUTO DIFFERENTIAL(Performed 11/24/2020) * CT HEAD WO CONTRAST(Performed 11/24/2020) Performed for Acute nonintractable headache, unspecified headache type, Chest pain, unspecified type, Hypertension, unspecified type * EKG 12-LEAD(Performed 11/24/2020) Performed for Chest pain, unspecified type * INFLUENZA A+B - POCT (IP) URGENT CARE(Performed 10/11/2019) Performed for Strep pharyngitis * STREP A SCREEN - POCT (IP) URGENT CARE(Performed 10/11/2019) Performed for Strep pharyngitis * CARDIAC EKG ORDER(Performed 02/02/2019) * BLOOD TYPE VERIFICATION(Performed 02/01/2019) * TROPONIN I(Performed 02/01/2019) * CT ANGIO CHEST ABDOMEN PELVIS(Performed 02/01/2019) Performed for Abdominal pain, epigastric * TYPE + SCREEN PANEL(Performed 02/01/2019) * TROPONIN I(Performed 02/01/2019) * PTT(Performed 02/01/2019) * PT-INR(Performed 02/01/2019) * LACTIC ACID BLOOD(Performed 02/01/2019) * LIPASE BLOOD(Performed 02/01/2019) * COMPREHENSIVE METABOLIC PANEL(Performed 02/01/2019) * CBC W AUTO DIFFERENTIAL(Performed 02/01/2019) * XR CHEST 1VW PORTABLE(Performed 02/01/2019) Performed for Abdominal pain, epigastric * EKG 12-LEAD(Performed 02/01/2019) Performed for Abdominal pain, epigastric Results * STREP A SCREEN - POCT (IP) URGENT CARE (08/02/2022 10:24 AM HOT HEAD MACHINE OPERATOR) Only the most recent of2 resultswithin the time period is included. Strep A Rapid POCT Negative Negative [facility] QC Verified Yes Yes [facility] Throat ENTIRE THROAT (SURFACE REGION OF NECK) / Unknown 08/02/2022 10:24 AM HOT HEAD MACHINE OPERATOR Radha Chahal BOTTOM SANDER-INDIVIDUALIZED EDUCATION PLAN AIDE LAB - POINT OF CA RE ORDERABLES [facility] [address] [place] [address], [facility] [phone] * (ABNORMAL) INFLUENZA A+B - POCT (IP) URGENT CARE (08/02/2022 10:20 AM HOT HEAD MACHINE OPERATOR) Only the most recent of2 resultswithin the time period is included. Influenza A Antigen Rapid Positive(A) Negative [facility] Influenza B Antigen Rapid Negative Negative [facility] QC Verified Yes Yes [facility] Other SPECIMEN FROM NASAL FOSSAE / Unknown 08/02/2022 10:20 AM HOT HEAD MACHINE OPERATOR Radha Chahal BOTTOM SANDER-INDIVIDUALIZED EDUCATION PLAN AIDE LAB - POINT OF NH RE ORDERABLES [facility] [address] [place] [address], [facility] [phone] * SARS-COV-2 (COVID-19) AG (IP) POCT (08/02/2022 10:14 AM HOT HEAD MACHINE OPERATOR) [facility] SARS-CoV-2 Ag Negative Negative [facility] Lot # [id number] [facility] Expiration Date 02/25/23 [facility] Instrument Serial Number n/a [facility] COVID Internal Control Acceptable Acceptable [facility] Microbiology SPECIMEN FROM NASAL FOSSAE / Unknown 08/02/2022 10:14 AM HOT HEAD MACHINE OPERATOR Narrative [facility] - 08/02/2022 10:31 AM HOT HEAD MACHINE OPERATOR SARS-CoV-2 antigen testing is authorized for use with nasal (Veritor, BinaxNOW, or Erin) or nasopharyngeal (Erin) swabs collected from individuals who are suspected of COVID-19 infection by their healthcare provider within the first five days of onset of symptoms. False-positive SARS-CoV-2 test results are more likely to occur when disease prevalence is low (less than 1%). False-negative SARS-CoV-2 test results are more likely to occur when disease prevalence is high (greater than 10%). This test has been authorized by the Food and Drug administration (FDA)under an Emergency Use Authorization (EUA). This test is only authorized for the duration of time the declaration that circumstances exist justifying the authorization of emergency use of in vitro diagnostic tests for detection of SARS-CoV-2 virus and/or diagnosis of COVID-19 infection under section 564(b)(1) of the Act, 21 U.S.C 360bbb-3 (b)(1), unless the authorization is terminated or revoked sooner. Fact Sheets for this EUA assay are available upon request. Negative results should be treated as presumptive and confirmation with a molecular assay, if necessary, for patient management, may be performed. Negative results do not rule out COVID-19 and should not be used as the sole basis for treatment or patient management decisions, including infection control decisions. Negative results should be considered in the context of a patient's recent exposures, history and the presence of clinical signs and symptoms consistent with COVID-19. Radha Chahal APRN-INDIVIDUALIZED EDUCATION PLAN AIDE LAB - POINT OF CA RE ORDERABLES Performing Organization Address [facility] Co de Phone Number [facility] [address] [place] [address] [phone] * CARDIAC EKG ORDER (11/28/2020 9:02 PM CDT) Only the most recent of3 resultswithin the time period is included. Narrative 11/28/2020 9:02 PM CDT Ordered by an unspecified provider. Scanned Document CARDIAC SERVICES ORD ERABLES * TROPONIN I (11/24/2020 4:19 PM CDT) Only the most recent of5 resultswithin the time period is included. Troponin I 0.031 <0.038 ng/mL 11/24/2020 4:45 PM CDT [facility] Blood BLOOD SPECIMEN / Unknown Venipuncture / Unknown 11/24/2020 4:19 PM CDT 11/24/2020 4:24 PM CDT Josie Dang PA-C LAB - CHEMISTRY ORDE PHILL Performing Organization Address [facility] Co de Phone Number [facility] [address] [place] [address] * ECHOCARDIOGRAM 2D WITH DOPPLER (11/24/2020 12:00 PM CDT) 11/24/2020 12:0 0 PM CDT Narrative Procedure Note Angus Gomez Jr., MD - 11/24/[address] [address] Echocardiography Examination Transthoracic Name: ROSS EUBANKS MPI#: MR#: [id number] Admission Number: [id number] Study Date: 11/24/2020 Study Time: 01:58 PM Date Of : 1980 Age: 40 years Height: 65 in. (165.1 cm) Weight: 217 lbs. (98.43 kg) BSA: 2.05 m2 Gender: Male Blood Pressure: 156 mmHg / 84 mmHg Heart Rate: Exam Details Procedure Ordered: ECHOCARDIOGRAM 2D W/DOPPLER Procedure Components: Complete 2D, M-mode, complete spectral Doppler, color Doppler Procedure Views: Images were obtained from the parasternal, apical, subcostal, and suprasternal notch acoustic windows Procedure Status: Pending Discharge Image Quality: Technically Difficult Contrast: Intravenous contrast (Definity) was administered to opacify the left ventricle. Facility Location: [facility] Indication: Elevated BNP ( brain natriuretic peptide) Procedure Stepdown Nurse: Mindy Carrero RDCS Ordering Provider: JOSIE DANG Reading Physician: Angus Gomez MD Conclusions Left Ventricle: Left ventricle is normal in size. Systolic left ventricular function is at the lower limits of normal. EF range is 45 % -55 %. Left ventricle wall thickness is moderately increased. There are no regional wall motion abnormalities. Doppler parameters are consistent with abnormal left ventricular relaxation (Grade 1 diastolic dysfunction). Follow up: Findings Patient: ROSS EUBANKS Study Date: 11/24/2020 01:58 PM Page 1 of 3 Left Ventricle: Left ventricle is normal in size. Systolic left ventricular function is at the lower limits of normal. EF evaluated by biplane method of disks. Left ventricle wall thickness is moderately increased. There are no regional wall motion abnormalities. Doppler parameters are consistent with abnormal left ventricular relaxation (Grade 1 diastolic dysfunction). There is reversal of the E to A ratio through the left ventricular inflow tract. Right Ventricle: Normal size right ventricle. Right ventricular wall thickness is normal. Right ventricular systolic function is normal. Pulmonary artery pressure cannot be obtained. Left Atrium: The left atrium is normal in size. Right Atrium: The right atrium is normal in size. Mitral Valve: Mitral leaflets exhibit normal cuspal separation. Trivial mitral regurgitation. No mitral valve stenosis. Aortic Valve: Aortic leaflets exhibit normal cuspal separation. No aortic valve regurgitation. There is no aortic stenosis. Tricuspid Valve: Tricuspid valve leaflets are normal. No significant tricuspid regurgitation. No tricuspid valve stenosis. Pulmonic Valve: Pulmonic leaflets exhibit normal cuspal separation. No pulmonic valve regurgitation is evident. There is no pulmonic valve stenosis. Aorta: The aorta is normal. No dilation of the ascending aorta. The aortic root exhibits normal size. Great Vessels: IVC: The inferior vena cava is normal in size and course. Pericardium: The pericardium is normal in appearance. No pericardial effusion. Clinical Data Comment: HX: HTN Measurements Anatomy Label Value Normal Value Aorta AoRoot, MM 3.2 cm (2.2cm - 3.7cm) Aortic Valve AV Vmean 0.88 m/s Aortic Valve AV VTI 22.5 cm Aortic Valve AV PGmax 6 mmHg Aortic Valve AV PGmean 4 mmHg Aortic Valve AV Vmax, Caliper 1.25 m/s (1m/s - 1.7m/s) Aortic Valve LVOT VTI / AV VTI 0.73 Aortic Valve PAOLA D (continuity eq. VTI) 2.3 cm Aortic Valve PAOLA Index (continuity 1.02 cm /m eq.Vmax) Aortic Valve LVOT Vmax / AV Vmax 0.67 Interventricular septum IVSd, 2D 1.6 cm (0.6cm - 1.1cm) Left Atrium LADs, 2D 3.7 cm (3cm - 4cm) Left Atrium LA Area s, A4C 18 cm (0cm - 20cm ) Left Atrium LAESV, MOD4 46 ml (18ml - 58ml) Left Atrium LAESV index, MOD4 22.4 ml/m Left Ventricle LVOT Vmax 0.84 m/s (0.7m/s - 1.1m/s) Patient: ROSS EUBANKS Study Date: 11/24/2020 01:58 PM Page 2 of 3 Left Ventricle LVOTd 2 cm (1.9cm - 2.1cm) Left Ventricle LVOT VTI 16.4 cm (18cm - 22cm) Left Ventricle LVOT PGmax 3 mmHg Left Ventricle LVDd, 2D 6 cm (4.2cm - 5.9cm) Left Ventricle LVPWd, 2D 1.2 cm (0.6cm - 1cm) Left Ventricle LVEDV, BP 159 ml (67ml - 155ml) Left Ventricle LVESV, BP 87 ml (22ml - 58ml) Left Ventricle LVEDV Index, BP 77.6 ml/m (35ml/m - 75ml/m ) Left Ventricle LVESV Index, BP 42.4 ml/m (12ml/m - 30ml/m ) Left Ventricle LVSV Index, BP 35.1 ml/m Left Ventricle LVOT PGmean 2 mmHg Left Ventricle LVOT Vmean 0.61 m/s Left Ventricle LVOT Area 3.1 cm Left Ventricle EF lower range (%) 45 % Left Ventricle EF upper range (%) 55 % Left Ventricle Diastolic MV E Vmax 0.52 m/s Function Left Ventricle Diastolic MV A Vmax 0.66 m/s Function Left Ventricle Diastolic MV E/A 0.79 Function Left Ventricle Diastolic MV E/E' lateral 8.1 Function Left Ventricle Diastolic MV E/E' septal 12.3 (0.5 - 1.7) Function Left Ventricle Diastolic MV DT 225 ms Function Left Ventricle Diastolic MV E' septal 0.04 m/s Function Left Ventricle Diastolic MV E' lateral 0.06 m/s Function Left Ventricle Diastolic MV E/E' mean 10.4 Function Left Ventricle Diastolic MV E' mean 0.05 m/s Function Mitral Valve MVA PHT 3.3 cm Mitral Valve MV PHT 66 ms Mitral Valve MV Dec [place] 2.28 m/s Pulmonic Valve PV PGmax 3 mmHg Pulmonic Valve PV Vmax, Caliper 0.81 m/s (0.6m/s - 0.9m/s) Right Ventricle Diastolic PV AT 109 ms Function Tricuspid Valve RA Pressure 5 mmHg (No Signature Object) Patient: ROSS EUBANKS Study Date: 11/24/2020 01:58 PM Page 3 of 3 Josie Dang PA-C ECHO ORDERABLES Performing Organization Address City/[facility]/ZIP Co de Phone Number [facility] [address] [place] [address] * (ABNORMAL) URINALYSIS REFLEX TO MICROSCOPIC NO CULTURE (11/24/2020 10:56 AM CDT) Color UA Yellow Straw, Yellow 11/24/2020 11:11 AM CDT [facility] Clarity UA Clear Clear 11/24/2020 11:11 AM CDT [facility] Glucose UA Trace(A) Negative 11/24/2020 11:11 AM CDT [facility] Bilirubin UA Negative Negative 11/24/2020 11:11 AM CDT [facility] Ketone UA Negative Negative 11/24/2020 11:11 AM CDT [facility] Specific [place] UA 1.020 1.005 - 1.030 11/24/2020 11:11 AM CDT [facility] Blood UA Negative Negative 11/24/2020 11:11 AM CDT [facility] pH UA 6.5 5.0 - 8.0 pH 11/24/2020 11:11 AM T [facility] Protein UA 2+(A) Negative 11/24/2020 11:11 AM T [facility] Urobilinogen UA Negative Negative mg/dL 11/24/2020 11:11 AM CDT [facility] Nitrite UA Negative Negative 11/24/2020 11:11 AM T [facility] Leukocyte UA Negative Negative 11/24/2020 11:11 AM T [facility] Urine Microscopy Urine microscopy to follow 11/24/2020 11:11 AM [facility] Urine URINE SPECIMEN OBTAINED BY CLEAN CATCH PROCEDURE / Unknown Collection / Unknown 11/24/2020 10:56 AM CDT 11/24/2020 10:58 AM CDT Josie Dang PA-C LAB - URINALYSIS ORD ERABLES [facility] [address] [place] [address] * (ABNORMAL) URINE MICROSCOPIC ONLY (11/24/2020 10:56 AM CDT) RBC UA 0-2 None Seen, 0-2, 3-5 # /hpf 11/24/2020 11:16 AM CDT [facility] WBC UA 0-5 None Seen, 0-5 # /hpf 11/24/2020 11:16 AM CDT [facility] Hyaline Casts 3-5(A) None Seen, 0-2 /LPF 11/24/2020 11:16 AM CDT [facility] Bacteria UA None Seen None Seen 11/24/2020 11:16 AM CDT [facility] Squamous Epithelial Cells 0-2 None Seen, 0-2, 3-5 /hpf 11/24/2020 11:16 AM CDT [facility] Mucus UA 1+ /LPF 11/24/2020 11:16 AM CDT [facility] Urine URINE SPECIMEN OBTAINED BY CLEAN CATCH PROCEDURE / Unknown Collection / Unknown 11/24/2020 10:56 AM CDT 11/24/2020 10:58 AM CDT Narrative [facility] - 11/24/2020 11:16 AM CDT Josie Dang PA-C LAB - URINALYSIS ORD ERABLES [facility] [address] [place], [place] [id number] * XR CHEST 1VW PORTABLE (11/24/2020 10:51 AM CDT) Only the most recent of2 resultswithin the time period is included. Anatomical Region Laterality Modality Chest Radiographic Cori ging 11/24/2020 11:0 5 AM CDT Impressions 11/24/2020 12:22 PM CDT UNREMARKABLE SINGLE VIEW PORTABLE EXAMINATION OF THE CHEST. *Reading Radiologist: Hemal Victoria on 11/24/2020 at 12:22 PM Narrative 11/24/2020 12:22 PM CDT SINGLE VIEW PORTABLE CHEST INDICATION: Headache, hypertension. FINDINGS: A single view portable examination of the chest, 1013 hours, is reviewed in comparison to prior study of 02/01/2019. Heart size is at the upper limits of normal. There is no pulmonary vascular congestion. The lung lebron are clear. I do not see any pneumothorax, pleural effusion or mediastinal changes. Procedure Note Hemal Victoria MD - 11/24/2020 SINGLE VIEW PORTABLE CHEST INDICATION: Headache, hypertension. FINDINGS: A single view portable examination of the chest, 1013 hours, is reviewed in comparison to prior study of 02/01/2019. Heart size is at the upper limits of normal. There is no pulmonary vascular congestion. The lung lebron are clear. I do not see any pneumothorax, pleural effusion or mediastinal changes. IMPRESSION UNREMARKABLE SINGLE VIEW PORTABLE EXAMINATION OF THE CHEST. *Reading Radiologist: Hemal Victoria on 11/24/2020 at 12:22 PM Josie Dang PA-C DIAGNOSTIC IMAGING O RDERABLES * CBC W AUTO DIFFERENTIAL (11/24/2020 10:28 AM CDT) Only the most recent of2 resultswithin the time period is included. WBC 10.4 4.4 - 10.7 x10E9/L 11/24/2020 10:41 AM CDT [facility] WBC Corrected 11/24/2020 10:41 AM CDT [facility] RBC 4.85 3.80 - 5.40 x10E12/L 11/24/2020 10:41 AM CDT [facility] Hemoglobin 13.2 12.0 - 17.6 gm/dL 11/24/2020 10:41 AM CDT [facility] Hematocrit 41.2 35.2 - 51.7 % 11/24/2020 10:41 AM CDT [facility] MCV 84.9 80.7 - 98.3 fl 11/24/2020 10:41 AM CDT [facility] MCH 27.2 26.7 - 34.0 pg 11/24/2020 10:41 AM CDT [facility] MCHC 32.0 30.8 - 35.9 gm/dL 11/24/2020 10:41 AM CDT [facility] Platelet Count 297 153 - 416 x10E9/L 11/24/2020 10:41 AM CDT [facility] RDW-CV 14.1 12.1 - 14.9 % 11/24/2020 10:41 AM CDT [facility] MPV 12.1 9.4 - 12.9 fl 11/24/2020 10:41 AM CDT [facility] Neutrophils % 67.9 44.0 - 73.0 % 11/24/2020 10:41 AM CDT [facility] Lymphocytes % 20.1 20.0 - 43.0 % 11/24/2020 10:41 AM CDT [facility] Monocytes % 9.1 5.0 - 13.0 % 11/24/2020 10:41 AM CDT [facility] Eosinophils % 1.9 0.0 - 6.0 % 11/24/2020 10:41 AM CDT [facility] Basophils % 0.7 0.0 - 2.0 % 11/24/2020 10:41 AM T [facility] Immature Granulocytes 0.3 0 - 1 % 11/24/2020 10:41 [facility] Neutrophil Absolute 7.05 2.01 - 7.14 x10E9/L 11/24/2020 10:41 AM [facility] Lymphocytes Absolute 2.09 1.07 - 3.94 x10E9/L 11/24/2020 10:41 AM [facility] Monocytes Absolute 0.95 0.26 - 1.07 x10E9/L 11/24/2020 10:41 AM T [facility] Eosinophils Absolute 0.20 0 - 0.47 x10E9/L 11/24/2020 10:41 AM [facility] Basophils Absolute 0.07 0 - 0.08 x10E9/L 11/24/2020 10:41 AM [facility] Immature Granulocytes Absolute 0.03 0.00 - 0.06 x10E9/L 11/24/2020 10:41 AM [facility] nRBC Auto 0 /100 WBC 11/24/2020 10:41 AM [facility] Blood BLOOD SPECIMEN / Unknown Venipuncture / Unknown 11/24/2020 10:28 AM CDT 11/24/2020 10:38 AM CDT Josie Dang PA-C LAB - HEMATOLOGY ORD ERABLES [facility] [address] [place] [address] * (ABNORMAL) B-TYPE NATRIURETIC PEPTIDE (11/24/2020 10:28 AM CDT) [facility] BNP 116(H) <=100 pg/mL 11/24/2020 11:02 AM CDT [facility] Blood BLOOD SPECIMEN / Unknown Venipuncture / Unknown 11/24/2020 10:28 AM CDT 11/24/2020 10:38 AM CDT [facility] - 11/24/2020 11:02 AM CDT A cutoff of 100 pg/mL has been demonstrated to provide the maximal combination of sensitivity, specificity, and negative predictive value for contributing to the diagnosis of congestive heart failure (CHF) only. A B-Type Natriuretic Peptide (BNP) value greater than or equal to 100 pg/mL is consistent with a diagnosis of CHF in the appropriate clinical setting. False positive results are more common in females greater than 75 years of age. Blood concentrations of natriuretic peptides may also be elevated in patients with myocardial infarction and in patients who are candidates for or are undergoing renal dialysis. Josie Dang PA-C LAB - CHEMISTRY [facility]DALENA [facility]LL[facility] Organization Address City/State/ZIP Co de Phone Number [facility] [address] [place] [address] * (ABNORMAL) COMPREHENSIVE METABOLIC PANEL (11/24/2020 10:28 AM CDT) Only the most recent of2 resultswithin the time period is included. [facility] Glucose 110(H) 70 - 105 mg/dL 11/24/2020 10:59 AM [facility] Sodium 142 136 - 145 mmol/L 11/24/2020 10:59 AM CDT [facility] Potassium 3.3(L) 3.5 - 5.1 mmol/L 11/24/2020 10:59 AM T [facility] Chloride 104 98 - 107 mmol/L 11/24/2020 10:59 AM CDT [facility] CO2 28 23 - 31 mmol/L 11/24/2020 10:59 AM [facility] Calcium 9.0 8.4 - 10.4 mg/dL 11/24/2020 10:59 AM CDT [facility] Anion Gap 10 8 - 18 mmol/L 11/24/2020 10:59 AM CDT [facility] Comment:Attention clinician: Reference Range change. BUN 16 8.9 - 20.6 mg/dL 11/24/2020 10:59 AM CDT [facility] Creatinine 1.40(H) 0.72 - 1.25 mg/dL 11/24/2020 10:59 AM CDT [facility] Alkaline Phosphatase 66 40 - 150 U/L 11/24/2020 10:59 AM CDT [facility] Comment:Attention clinician: Reference Range change. ALT 26 0 - 61 U/L 11/24/2020 10:59 AM CDT [facility] AST 15 5 - 34 U/L 11/24/2020 10:59 AM CDT [facility] Protein Total 7.9 6.4 - 8.3 gm/dL 11/24/2020 10:59 AM CDT [facility] Albumin 3.8 3.5 - 5.2 gm/dL 11/24/2020 10:59 AM CDT [facility] Bilirubin Total 0.4 0.2 - 1.2 mg/dL 11/24/2020 10:59 AM CDT [facility] Comment:Attention clinician: Reference Range change. eGFR by MDRD 56(L) >60 mL/min/1.7 3m2 11/24/2020 10:59 AM CDT [facility] eGFR by MDRD >60 >60 mL/min/1.7 3m2 11/24/2020 10:59 AM CDT [facility] Blood BLOOD SPECIMEN / Unknown Venipuncture / Unknown 11/24/2020 10:28 AM CDT 11/24/2020 10:38 AM CDT Josie Dang PA-C LAB - CHEMISTRY [facility] Organization Address City/State/ZIP Co de Phone Number [facility] [address] [place] [address] * CT HEAD NON CONTRAST - intracranial hemorrhage (11/24/2020 10:17 AM CDT) Anatomical Region Laterality Modality Head Computed Tomogra phy 11/24/2020 10:2 4 AM CDT Narrative 11/24/2020 10:26 AM CDT Examination: Noncontrast CT brain. Indication for examination: Persistent severe headache. Hypertension. An emergency noncontrast CT examination of the brain is performed with 5 mm helical technique. No acute intracranial hemorrhage is identified. There is no mass lesion or fluid collection. 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 There is a focus of chronic small vessel ischemic change right escobedo radiata and a small focus in the white matter of the right frontal lobe.. These findings are greater than expected for age. No other discrete parenchymal abnormality is observed. There is no acute infarct or hyperdense thrombus identified. Ventricles and subarachnoid pathways are normal in size and configuration. Paranasal sinuses appear well aerated. CONCLUSION: Chronic infarcts as described. No discrete acute intracranial abnormality identified. *Reading Radiologist: Dani Busch on 11/24/2020 at 10:26 AM Procedure Note Dani Busch MD - 11/24/2020 Examination: Noncontrast CT brain. Indication for examination: Persistent severe headache. Hypertension. An emergency noncontrast CT examination of the brain is performed with 5 mm helical technique. No acute intracranial hemorrhage is identified. There is no mass lesion or fluid collection. 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 There is a focus of chronic small vessel ischemic change right escobedo radiata and a small focus in the white matter of the right frontal lobe.. These findings are greater than expected for age. No other discrete parenchymal abnormality is observed. There is no acute infarct or hyperdense thrombus identified. Ventricles and subarachnoid pathways are normal in size and configuration. Paranasal sinuses appear well aerated. CONCLUSION: Chronic infarcts as described. No discrete acute intracranial abnormality identified. *Reading Radiologist: Dani Busch on 11/24/2020 at 10:26 AM Josie Dang PA-C CT ORDERABLES * EKG 12-LEAD (11/24/2020 9:53 AM CDT) Only the most recent of2 resultswithin the time period is included. Ventricular Rate 96 BPM [facility] Atrial Rate 96 BPM [facility] P-R Interval 130 ms [facility] QRS Duration ms 80 ms [facility] Q-T Interval ms 358 ms [facility] QTC Calculation (Bezet) 452 ms [facility] Calculated P Valentine 39 degrees [facility] Calculated R Valentine -8 degrees [facility] Calculated T Valentine -27 degrees [facility] Interpretation EKG Normal sinus rhythm Left atrial enlargement Left ventricular hypertrophy T wave abnormality, consider lateral ischemia Abnormal ECG When compared with ECG of 01-FEB-2019 16:27, T wave inversion now evident in Lateral leads Confirmed by Jewel Baldwin ([id number]) on 11/26/2020 3:31:50 PM [facility] 11/24/2020 9:5 3 AM CDT 11/26/2020 3:31 PM CDT Josie Dang PA-C ECG ORDERABLES [facility] * BLOOD TYPE VERIFICATION (02/01/2019 9:55 PM CDT) ABO A 02/01/2019 10:51 PM CDT [facility] Rh Type Positive 02/01/2019 10:51 PM CDT [facility] Comment:History checked. Blood Bank BLOOD SPECIMEN / Unknown Venipuncture / Unknown 02/01/2019 9:55 PM CDT 02/01/2019 9:59 PM CDT Josselyn Gale MD LAB - BLOOD BANK O RDERABLES [facility] [address] [facility], [facility] [phone] * CT ANGIO CHEST ABD PELVIS W/WO CON (02/01/2019 6:49 PM CDT) Anatomical Region Laterality Modality Computed Tomogra phy 02/01/2019 7:13 PM CDT Impressions 02/01/2019 7:18 PM CDT No thoracoabdominal aortic dissection or aneurysm Reading Radiologist: Camacho Berger MD on 02/01/2019 at 7:18 PM Narrative 02/01/2019 7:[address] Angiogram Chest, Abdomen, and Pelvis CLINICAL INDICATION: Epigastric pain radiating to the back that is exacerbated by eating that is felt to represent a possible aortic dissection in a 38-year-old male. TECHNIQUE: Axial CT imaging of the chest ,abdomen, and pelvis were obtained prior to and following administration of 80 mL Isovue 370. Noncontrast images were also performed. 3-D volume rendered reconstructions and MIP images were performed on an independent workstation Findings: Noncontrast shows no lobar consolidation. Lingular subsegmental atelectasis. No pericardial or pleural effusion. No calcified gallstones. No ureterolithiasis. No thoracic aortic dissection or aneurysm. No distention the main pulmonary artery is the right ventricle. In the abdomen, no abdominal aortic dissection or aneurysm. No major mesenteric vascular stenosis. No hepatosplenomegaly. No peripancreatic inflammatory changes. The common bile duct caliber is normal. No small bowel distention or small bowel transition zone. No generalized small bowel wall thickening. The kidneys perfuse and contrast symmetrically. No adrenal enlargement or retroperitoneal adenopathy In the pelvis, the bladder wall thickness is normal. No inguinal or obturator adenopathy. 3-dimensional reconstructed images shows no major mesenteric vascular stenosis. No thoracolumbar compression fracture or spondylolisthesis Procedure Note Camacho Berger MD - 02/01/2019 CT Angiogram Chest, Abdomen, and Pelvis CLINICAL INDICATION: Epigastric pain radiating to the back that is exacerbated by eating that is felt to represent a possible aortic dissection in a 38-year-old male. TECHNIQUE: Axial CT imaging of the chest ,abdomen, and pelvis were obtained prior to and following administration of 80 mL Isovue 370. Noncontrast images were also performed. 3-D volume rendered reconstructions and MIP images were performed on an independent workstation Findings: Noncontrast shows no lobar consolidation. Lingular subsegmental atelectasis. No pericardial or pleural effusion. No calcified gallstones. No ureterolithiasis. No thoracic aortic dissection or aneurysm. No distention the main pulmonary artery is the right ventricle. In the abdomen, no abdominal aortic dissection or aneurysm. No major mesenteric vascular stenosis. No hepatosplenomegaly. No peripancreatic inflammatory changes. The common bile duct caliber is normal. No small bowel distention or small bowel transition zone. No generalized small bowel wall thickening. The kidneys perfuse and contrast symmetrically. No adrenal enlargement or retroperitoneal adenopathy In the pelvis, the bladder wall thickness is normal. No inguinal or obturator adenopathy. 3-dimensional reconstructed images shows no major mesenteric vascular stenosis. No thoracolumbar compression fracture or spondylolisthesis IMPRESSION No thoracoabdominal aortic dissection or aneurysm Reading Radiologist: Camacho Berger MD on 02/01/2019 at 7:18 PM Joseslyn Gale MD CT ORDERABLES * TYPE + SCREEN PANEL (02/01/2019 6:06 PM CDT) ABO A 02/01/2019 8:42 PM CDT [facility] Rh Type Positive 02/01/2019 8:42 PM CDT [facility] Comment:History checked. Col lect retype. Antibody Screen Negative 02/01/2019 8:42 PM CDT [facility] Blood Bank BLOOD SPECIMEN / Unknown Venipuncture / Unknown 02/01/2019 6:06 PM CDT 02/01/2019 6:11 PM CDT Josselyn Gale MD LAB - BLOOD BANK O RDERABLES [facility] [address] [place] [address], [facility] [phone] * PTT (02/01/2019 6:02 PM CDT) PTT 31.6 21.0 - 32.0 sec 02/01/2019 6:23 PM CDT [facility] Blood BLOOD SPECIMEN / Unknown Venipuncture / Unknown 02/01/2019 6:02 PM CDT 02/01/2019 6:11 PM CDT Narrative [facility] - 02/01/2019 6:23 PM CDT Heparin Therapeutic Range for PTT: 50.5 - 74.3 seconds. Josselyn Gale MD LAB - COAGULATION ORDERABLES Performing Organization Address City/[facility] de Phone Number [facility] [address] [place] [phone] * PT-INR (02/01/2019 6:02 PM CDT) Pathologist [facility] PT 10.7 9.5 - 11.6 sec 02/01/2019 6:23 PM CDT [facility] INR 1.1 0.9 - 1.1 02/01/2019 6:23 PM CDT [facility] Blood BLOOD SPECIMEN / Unknown Venipuncture / Unknown 02/01/2019 6:02 PM CDT 02/01/2019 6:11 PM CDT Narrative [facility] - 02/01/2019 6:23 PM CDT Conventional Warfarin Anticoagulant Therapy: INR Reference Range: 2.0-3.0 Intensive Warfarin Anticoagulant Therapy: INR Reference Range: 2.5-3.5 Josselyn Gale MD LAB - COAGULATION ORDERABLES Performing Organization Address [facility] de Phone Number [facility] [address] [place] [address] * (ABNORMAL) LIPASE BLOOD (02/01/2019 6:02 PM CDT) Pathologist [facility] Lipase 87(H) 8 - 78 U/L 02/01/2019 6:37 PM CDT [facility] Blood BLOOD SPECIMEN / Unknown Venipuncture / Unknown 02/01/2019 6:02 PM CDT 02/01/2019 6:11 PM CDT Narrative [facility] - 02/01/2019 6:37 PM CDT Attention clinician: Reference Range has changed. Josselyn Gale MD LAB - CHEMISTRY OR DERABLES Performing Organization Address [facility] Co de Phone Number [facility] [address] [place] [phone] * LACTIC ACID BLOOD (02/01/2019 6:02 PM CDT) Lactic Acid 1.12 0.5 - 2.2 mmol/L 02/01/2019 6:53 PM CDT [facility] Blood BLOOD SPECIMEN / Unknown Venipuncture / Unknown 02/01/2019 6:02 PM CDT 02/01/2019 6:11 PM CDT Josselyn aGle MD LAB - CHEMISTRY OR DERABLES [facility] [address] [phone]
--- OUTSIDE RECORDS SUMMARY | 2024-09-11 18:19 | XMS_ITS | Clinical Summary ---
Author Organization [facility] Address [address] [place] [address] Phone Care Team Providers Care Assistant Kitchen Manager Name Role Phone Lucio Gaona DO Primary Care Provi zaira Allergies No known active allergies Medications aspirin (KERMIT CHEWABLE) 81 mg Tablet, Chewable Take 1 Tablet (81 mg) by mouth daily. 30 Tablet 2 3 Active Additional Information Patient not taking.Reported on 04/07/2024 carvediloL (COREG) 25 mg tablet Take 1 Tablet (25 mg) by mouth 2 times daily with meals. 180 Tablet 3 4 Active hydrALAZINE (APRESOLINE) 50 mg tablet Take 1 Tablet (50 mg) by mouth every 8 hours. 270 Tablet 3 4 Active isosorbide mononitrate (IMDUR) 30 mg Extended Release 24 hour tablet Take 1 Tablet (30 mg) by mouth daily. 90 Tablet 3 4 Active atorvastatin (LIPITOR) 80 mg tablet Take 1 Tablet (80 mg) by mouth daily at bedtime. 90 Tablet 3 4 Active blood sugar diagnostic Strip TEST BLOOD GLUCOSE TWO TO THREE TIMES DAILY DIRECTED 100 Each 01/19/2024 12:12 PM CDT 4 Active Additional Information Patient not taking.Reported on 04/07/2024 lancets (OneTouch Delica Plus Lancet) 33 gauge USE DIRECTED TWO TO THREE TIMES DAILY 100 Each 01/19/2024 12:12 PM CDT 4 Active Additional Information Patient not taking.Reported on 04/07/2024 Blood-Glucose Meter (LiveReuch Verio Reflect Meter) Use as directed to test blood glucose 1 Each 01/19/2024 12:12 PM CDT 4 Active Additional Information Patient not taking.Reported on 04/07/2024 amLODIPine (NORVASC) 10 mg tablet Take 1 Tablet (10 mg) by mouth daily. 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 100 Tablet 3 4 Active Irbesartan (Avapro) 300 mg tablet Take 1 Tablet (300 mg) by mouth daily at bedtime. 100 Tablet 3 4 Active Active Problems Problem Noted Date Diagnosed Date Abnormal CT of brain 01/19/2024 Abnormal finding on MRI of brain 01/19/2024 Type 2 diabetes mellitus wit h stage 3b chronic kidney disease, without long-term current use of insulin 01/18/2024 Overview (06/29/2024): Lab Results Component Value Date HGBA1C 6.6 (H) 01/18/2024 No results found for: MICROALBUMIN , MALBUR , [id number] , MICRCREATR , MICRALBURINE - Type: 2 - Current medications include: Farxiga - Frequency of testing: - Average blood sugar: ~ - Diabetic symptoms (e.g. polyuria, polydipsia, or polyphagia)?: - Hypoglycemia: - Last eye doctor visit: - ASA: - Neuropathy (and if so, where affected?): - Complications: - Last DM foot exam: Stroke-like symptoms 01/18/2024 Hypokalemia 01/18/2024 Implantable loop recorder present 01/06/2024 Encounter for colorectal cancer screening 2023 Hypertensive heart and kidne y disease with chronic systolic congestive heart failure and stage 3b chronic kidney disease 01/03/2024 Overview (06/29/2024): EJECTION FRACTION Date Value Ref Range Status 01/19/2024 50 Final - Diastolic, systolic, or combined?: systolic - Current symptoms (e.g. Chest pain, shortness of breath, cough, edema, or weight gain)?: - Current medications include: irbesartan, farxiga, carvediolol - Medication side effects?: - Vocational Rehabilitation Supervisor: Dr. Valdez - Last echo: Lab Results Component Value Date CREAT 2.01 (H) 01/20/2024 CREATPOC 1.90 (H) 06/18/2023 - Blood pressure control: - Diabetic (and if so, status)?: - Current symptoms (e.g. Increased swelling, weight gain, shortness of breath, or urinary changes)?: - Dietary compliance with avoiding salt/protein?: History of stroke with residual deficit 01/03/20 24 Overview (01/03/2024): memory deficits Mild CAD 01/03/2024 Cerebrovascular disease 01/03/2024 HLD (hyperlipidemia) 07/04/2023 Overview (07/04/2023): Lab Results Component Value Date CHOLTOT 210 (H) 06/18/2023 HDL 52 06/18/2023 LDLCALC 140 (H) 06/18/2023 TRIGLYCERIDE 88 06/18/2023 - Current medications include: atorvastatin - Dietary compliance (fat): yes - Current activity/exercise levels: work - Muscle pain?: no Assessment & Plan (07/04/2023 10:23 AM SATELLITE DISH TECHNICIAN): The ASCVD Risk score (Adair DK, et al., 2019) failed to calculate for the following reasons: The patient has a prior RI or stroke diagnosis Patient is at or near goal. Most recent cholesterol test is reviewed (if available). Patient encouraged to diet and exercise. Continue medications / fish oil. Advised about risks of medications. Frequent blood work for efficacy / LFTs. Acute kidney injury superimposed on CKD 06/27/20 Noncompliance with medications 06/19/2023 Severe obesity (BMI 35.0-39.9) with comorbidity 06/18/2023 Overview (09/23/2023): Wt Readings from Last 3 Encounters: 09/23/23 97.5 kg (215 lb) 07/04/23 98.9 kg (218 lb) 06/18/23 96.2 kg (212 lb 1.6 oz) - Diet: not good, fast food a couple times a week, using air fryer, not enough water, some caffeine, diet soda - Exercise: work - Starting weight: 250 - Goal weight: 160 Assessment & Plan (09/23/2023 11:52 AM SATELLITE DISH TECHNICIAN): Not at goal. Recommended increased exercise and dietary control, up to and including Weight Watchers or counting calories. Recommended increased exercise and dietary control, up to and including Weight Watchers, MyFitnesspal, or other avenues of counting calories. Most recent thyroid function reviewed (if available). Recommended Mediterranean diet, unless diabetic, at which point I recommended diabetic diet. Have considered medications as well, see orders. Periodically will assess for potential for bariatric surgery, see patient instructions. Assessment & Plan (07/04/2023 10:22 AM SATELLITE DISH TECHNICIAN): Not at goal. Recommended increased exercise and dietary control, up to and including Weight Watchers or counting calories. Recommended increased exercise and dietary control, up to and including Weight Watchers, MyFitnesspal, or other avenues of counting calories. Most recent thyroid function reviewed (if available). Recommended Mediterranean diet, unless diabetic, at which point I recommended diabetic diet. Have considered medications as well, see orders. Periodically will assess for potential for bariatric surgery, see patient instructions. Uncontrolled hypertension 06/18/2023 Cardiomyopathy 06/18/2023 Resolved Problems Problem Noted Date Diagnosed Date Resolved Date Cerebrovascular accident (CVA) 01/19/2024 01/21/2024 Acute systolic (congestive) heart failure 06/22/2023 06/27/2023 Abnormal stress echo 06/22/2023 023 Stage 3 chronic kidney disease 06/22/2023 01/03/2024 Prediabetes 06/22/2023 01/18/2024 Chronic heart failure with p reserved ejection fraction 06/21/2023 01/03/2024 History of cerebrovascular a ccident (CVA) due to ischemia 06/19/2023 01/03/2024 Overview (10/24/2023): - Stroke type: ischemic - Last stroke date: 06/18/23 - Residual symptoms include: denies - Current medications include: carvedilol, isosorbide, hydralazine, atorvastatin, baby aspirin - Blood pressure control: not at goal, working on this. - Neurologist: Esmer Sandoval [facility] - Most recent neuroimaging reviewed. Assessment & Plan (10/24/2023 12:39 PM CDT): Suboptimal control. Continue current medications. Referrals for cardiology and neurology. Called on face time ( per husbands request) during visit and given clear instructions on follow up Assessment & Plan (07/04/2023 10:23 AM SATELLITE DISH TECHNICIAN): Suboptimal control. Continue current medications. Referrals for cardiology and neurology. Cerebral infarction 06/19/2023 01/03/20 24 Hypertensive encephalopathy 06/19/2023 06/27/2023 Essential hypertension 06/18/202301/02 Dizziness 06/18/2023 06/27/2023 Memory deficits 06/18/2023 01/03/2024 Benign hypertension with sta ge 3b chronic kidney disease 06/18/2023 01/03/2024 Overview (10/24/2023): Lab Results Component Value Date CREAT 2.05 (H) 06/27/2023 - Current medications include: isosorbide, carvedilol, hydralazine - Patient checks their BP: no - End organ damage is: CKD 3B - Orthostasis/syncope?: no - Other side effects?: ED - Dietary compliance (salt): no - has not seen hand brim ironer, Assessment & Plan (10/24/2023 12:38 PM CDT): Blood pressure control is not at goal. Recommended to follow up with blade aligner and hand brim ironer. Also spoke with on face time. Medications per orders. Most recent renal function testing reviewed (if available). Advised compliance to medication regimen, if applicable. Patient to let us know if notices any significant side effects, if applicable. Will continue to monitor cholesterol levels and renal function routinely. Smoking status reviewed. Counseling on lifestyle issues provided as needed. Patient advised to continue to limit salt intake and to exercise regularly. Assessment & Plan (09/23/2023 11:52 AM SATELLITE DISH TECHNICIAN): Blood pressure control is not at goal. Medications per orders. Most recent renal function testing reviewed (if available). Advised compliance to medication regimen, if applicable. Patient to let us know if notices any significant side effects, if applicable. Will continue to monitor cholesterol levels and renal function routinely. Smoking status reviewed. Counseling on lifestyle issues provided as needed. Patient advised to continue to limit salt intake and to exercise regularly. Assessment & Plan (07/04/2023 10:22 AM SATELLITE DISH TECHNICIAN): Blood pressure control is not at goal. Medications per orders. Most recent renal function testing reviewed (if available). Advised compliance to medication regimen, if applicable. Patient to let us know if notices any significant side effects, if applicable. Will continue to monitor cholesterol levels and renal function routinely. Smoking status reviewed. Counseling on lifestyle issues provided as needed. Patient advised to continue to limit salt intake and to exercise regularly. Changes in vision 06/18/2023 06/27/2023 Hypertensive emergency 06/18/202306/27 Abnormal stress test 06/18/2023 023 Encounters Date Type Department Care Team Description 09/01/2024 External Device Data [facility] ABSTRACTION Provider, Abstract 08/18/2024 External Device Data [facility] ABSTRACTION Provider, Abstract 07/14/2024 External Device Data [facility] ABSTRACTION Provider, Abstract 06/30/2024 External Device Data [facility] ABSTRACTION Provider, Abstract from Last 3 Months Immunizations Immunization Administration Dates Next Due (PREVNAR 20)(6 WKS UP) PNEUM OCOCCAL CONJUGATE VACCINE 20-VALENT (PCV20), POLYSACCHARIDE [id number] CONJUGATE, ADJUVANT 0.5 ML (PF) IM 06/22/2023 Family History Medical History Relation Name Comments Heart Disease Brother Seizures Daughter 1 Healthy Daughter 2 Healthy Daughter 3 Healthy Daughter 4 Healthy Daughter 5 Healthy Father Healthy Mother Diabetes Paternal Grandmother Healthy Son 1 Seizures Son 1 Healthy Son 2 Relation Name Status Comments Brother Daughter 1 Alive Daughter 2 Alive Daughter 3 Alive Daughter 4 Alive Daughter 5 Alive Father Alive Mother Alive Paternal Grandmother Son 1 Alive Son 2 Alive Social History Tobacco Use Types Packs/Day Years Used Date Smoking Tobacco: Never Passive Smoke Exposure: Past Smokeless Tobacco: Never Tobacco Cessation:Counseling Given: Not Answered Alcohol Use Standard Drinks/Week Comments Not Currently 0 (1 standard drink = 0.6 oz pur e alcohol) Feeling Safe Answer Date Recorded Are you in a relationship wi th someone who hurts you emotionally and/or physically? No 01/18/2024 Food Insecurity Answer Date Recorded Social/Environmental Concerns No concerns Transportation Needs Answer Date Record ed Social/Environmental Concerns No concerns Housing Stability Answer Date Recorded Social/Environmental Concerns No concerns Utility Needs Answer Date Recorded Social/Environmental Concerns No concerns Sex and Gender Information Value Date Recorded Sex Assigned at Not on file Legal Sex Male 4:43 AM SATELLITE DISH TECHNICIAN Gender Identity Not on file Sexual Orientation Not on file Last Filed Vital Signs Vital Sign Reading Time Taken Comments Blood Pressure 152/90 04/07/2024 12:50 PM CDT Pulse 92 04/07/2024 12:50 PM CDT Temperature 36.2 C (97.2 F) 04/07/2024 12:50 PM CDT Respiratory Rate 18 01/20/2024 11:46 AM CDT Oxygen Saturation 98% 04/07/2024 12:50 PM CDT Inhaled Oxygen Concentration - - Weight 96.8 kg (213 lb 8 oz) 04/07/2024 12:50 PM CDT Height 165.1 cm (5' 5 ) 04/07/2024 12:50 PM CDT Body Mass Index 35.53 04/07/2024 12:50 PM CDT Plan of Treatment Health Maintenance Due Date Last Done Comments DIABETES ANNUAL RETINAL EXAM 1996 DIABETES MICROALBUMIN ANNUAL SCREEN 1996 DTAP/TDAP/TD VACCINES (1 - Tdap) 1997 HEPATITIS B VACCINES (1 of 3 - 19+ 3-dose series) 1997 COLORECTAL SCREENING 11/01/2023 Colorectal Cancer Screening 11/01/2023 FIT-DNA Q 3 years 11/01/2023 FIT/FOBT Q 1 year 11/01/2023 Flex Sig/CT Colonography Q 5 years 11/01/2023 INFLUENZA VACCINE (#1) 2024 10/24/2023 DIABETES HBA1C Q 6 MONTHS 07/19/20242023, 06/18/2023 Preventative Visit- Commercial 08/05/2024 DIABETES: A1C (Auto Order) 01/17/202501/17, 06/18/2023 LDL CHOLESTEROL ANNUAL 01/17/2025 , 06/18/2023 DIABETES ANNUAL FOOT EXAM 04/07/2025 04/07/2024 HPV VACCINES Aged Out No longer eligi ble based on patient's age to complete this topic Medical Devices Implanted Type Area Cementer Device Identifier Shelf Expiration Date Model / Serial / Lot Monitor Cardiac Icm Lux-Dx 2+ [id number] - [id number] Implanted:Qt y: 1 on 12/03/2023 at [facility] Cardiovascular Device Left: Chest StemSave 04/17/2025 [id number] / [id number] / Procedures Procedure Name Priority Date/Time Associated Diagnosis Comments LIPID PANEL Stat 01/18/2024 1:39 PM CDT HEMOGLOBIN A1C Stat 01/18/2024 1:39 PM CDT from Last 3 Months or Most Recently Relevant to Health Maintenance Results * (ABNORMAL) HEMOGLOBIN A1C (01/18/2024 1:39 PM CDT) HEMOGLOBIN A1C 6.6(H) <=5.6 % 01/18/2024 3:29 PM CDT [facility] EST. AVG GLUCOSE, A1C 143 mg/dL 01/18/2024 3:29 PM CDT [facility] [employer] [facility] Blood Venipuncture / Unknown 01/18/2024 1:39 PM CDT 01/18/2024 1:46 PM CDT Narrative [facility] - 01/18/2024 3:29 PM CDT HGB A1C INTERPRETATION NORMAL: <5.7% PRE-DIABETES: 5.7 - 6.4% DIABETES: 6.5% OR GREATER Ronna Moss NP CHEMISTRY ORDERABLES Final R esult [facility] CLIA# [id number] [place] [address] * (ABNORMAL) LIPID PANEL (01/18/2024 1:39 PM CDT) CHOLESTEROL 178 <200 mg/dL 01/18/2024 3:37 PM CDT [facility] TRIGLYCERIDE 94 <150 mg/dL 01/18/2024 3:37 PM CDT [facility] HDL 44 40 - 59 mg/dL 01/18/2024 3:37 PM CDT [facility] LDL CALCULATED 115(H) <100 mg/dL 01/18/2024 3:37 PM CDT [facility] NON-HDL CHOLESTEROL 134(H) <130 mg/dL 01/18/2024 3:37 PM CDT [facility] Blood Venipuncture / Unknown 01/18/2024 1:39 PM CDT 01/18/2024 1:46 PM CDT Narrative [facility] - 01/18/2024 3:37 PM CDT TOTAL CHOLESTEROL mg/dL Desirable <200 Borderline high 200-239 High >=240 TRIGLYCERIDES mg/dL Normal <150 Borderline high 150-199 High 200-499 Very high >=500 HDL CHOLESTEROL mg/dL Low <40 Normal 40-59 Desirable >=60 NON HDL CHOLESTEROL mg/dL Optimal <130 Near Optimal 130-159 Borderline High 160-189 Very High >=190 CALCULATED LDL mg/dL LDL <70, OPTIMAL if have Atherosclerotic cardiovascular disease (ASCVD) or intermediate or higher (>7.5%) 10 year risk of ASCVD including most adults with diabetes. LDL <100, Optimal in adult patients with low (<7.5%) 10 year ASCVD risk LDL 100-160, Suboptimal LDL >160, High LDL >190, Very high ATPIII Guidelines Reference Ranges for Lipid Panels (NCEP/AMA) . Ronna Moss SKI MAKER CHEMISTRY ORDERABLES Final R esult [id number] [place] [address] from Last 3 Months or Most Recently Relevant to Health Maintenance Insurance BCBS EXCHANGE RX [facility] Commercial Advance Directives For more information, please contact: [phone] * Full Code (Latest Code Status on File) Date Activated Date Inactivated Comments 01/18/2024 3:48 PM 01/20/2024 2:48 PM * Full Code Date Activated Date Inactivated Comments 06/18/2023 5:46 PM 06/27/2023 5:54 PM Care Teams Assistant Kitchen Manager Relationship Specialty Start Date End Date Lucio Gaona DO [address] [place] [address] [facility] [place] [address] PCP - General Family Practice 07/04/23
[2024-09-11] MEDS: carvediloL 25 MG TABLET PO (18:25)
[2024-09-11 18:29] LABS: Amphetamine Screen Urine Negative (Negative); Barbiturate Screen Urine Negative (Negative); Benzodiazepines Screen Urine Negative (Negative); Cannabinoid Screen Urine Negative (Negative); Cocaine Screen Urine Negative (Negative); Methadone Screen Urine Negative (Negative); Opiate Screen Urine Negative (Negative); Phencyclidine Screen Urine Negative (Negative)
--- NOTE | 2024-09-11 20:25 | ECG_ITS ---
Test Date: 2024-09-11 20:31:34 Measurements Intervals [place] Rate: 99 P: 57 SD: 157 QRS: -3 QRSD: 92 T: 197 QT: 376 QTc: 485 Interpretive Statements SINUS RHYTHM LEFT ATRIAL ENLARGEMENT DELAYED PRECORDIAL R/S TRANSITION LEFT VENTRICULAR HYPERTROPHY AND ST-T CHANGE BORDERLINE T WAVE ABNORMALITY- ANTEROLAT/INF LEADS BASELINE ARTIFACT- I, II, AVR, AVL, AVF, V4-V6 BORDERLINE ECG Compared to ECG 09/11/2024 16:11:20 No significant changes Electronically Signed On 09-12-2024 06:37:48 SALES LEADER by Addy Ladd D.O.
--- NOTE | 2024-09-11 20:33 | P.HP_ITS ---
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 He has not seen a PCP in a year. He lives with his mother who accompanies him today and provides history. Patient does not have medications. 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 Day prior to admission he fell in the bathroom around 9:00 p.m. while trying to turn off the light switch. He fell onto his right side but did not hit his head or have seizure activity or lose consciousness. He went to bed and when he woke up he reports he had blurry vision in the left eye but this has been going on and off for some time. Denies it currently. He had a stroke prior with aphasia and he has residual intermittent and uncontrollable bursts of laughter but otherwise can communicate clearly. Upon evaluation in the ER the patient reports he has no complaints other than achiness at the right lower ribs. Three view x-ray of the right ribs was performed without acute fracture demonstrated. 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 Blood pressure on arrival 232/160 and his mother confirms this is how it has been for a long time. He was given Coreg 25 mg p.o. x1 and hydralazine 10 mg IV x2 and his blood pressure systolic improved to 170. Further laboratory workup revealed a WBC of 11.4, hemoglobin 13.8, serum creatinine 1.74, BUN 16, troponin 0.040. Patient will be admitted on 09/11/2024 for hypertensive urgency, MARGARET versus CKD, leukocytosis, fall at home. Review of Systems Review of Systems: All systems reviewed & are unremarkable except as noted in HPI and below (HPI) [facility] Past Medical History Medical History (Updated 09/11/24 @ 20:41 by Faviola Virgen MD) History of stroke History of hyperlipidemia History of hypertension Social History Social History (Updated 09/11/24 @ 17:39 by Gege Valdovinos PA-C) Substance use: never Meds Home Medications and Allergies Allergies Allergy/AdvReac Type Severity Reaction Status Date / Time No Known Allergies Allergy Verified 09/11/24 16:42 Vital Signs Vital Signs - 24 hr 09/11/24 15:56 09/11/24 16:41 09/11/24 16:49 Temperature 97.8 F Pulse Rate 102 H 103 H 90 Respiratory Rate 17 14 Blood Pressure 232/160 H 198/111 H Pulse Oximetry 100 98 100 Oxygen Delivery Room Air 09/11/24 16:51 09/11/24 17:03 09/11/24 17:15 Temperature Pulse Rate 90 88 86 Respiratory Rate 9 L 19 Blood Pressure 197/120 H Pulse Oximetry 100 100 99 Oxygen Delivery 09/11/24 17:16 09/11/24 17:39 09/11/24 17:40 Temperature Pulse Rate 89 96 99 Respiratory Rate 20 22 H 19 Blood Pressure 207/132 H 226/186 H Pulse Oximetry 97 100 Oxygen Delivery 09/11/24 18:03 09/11/24 18:04 09/11/24 18:15 Temperature Pulse Rate 105 H 103 H 102 H Respiratory Rate 33 H 24 H 26 H Blood Pressure 229/134 H Pulse Oximetry 100 100 Oxygen Delivery 09/11/24 18:16 09/11/24 18:17 09/11/24 18:36 Temperature Pulse Rate 107 H 107 H 117 H Respiratory Rate 28 H 20 19 Blood Pressure 226/130 H Pulse Oximetry 100 100 100 Oxygen Delivery 09/11/24 18:45 09/11/24 18:48 09/11/24 18:57 Temperature Pulse Rate 118 H 143 H 108 H Respiratory Rate 28 H 21 H 20 Blood Pressure 214/151 H 217/135 H Pulse Oximetry 99 Oxygen Delivery 09/11/24 19:00 09/11/24 19:01 09/11/24 19:02 Temperature Pulse Rate 106 H 104 H 104 H Respiratory Rate 15 18 24 H Blood Pressure 189/130 H Pulse Oximetry 100 100 100 Oxygen Delivery 09/11/24 19:15 09/11/24 19:17 09/11/24 19:30 Temperature Pulse Rate 103 H 105 H 98 Respiratory Rate 20 21 H 29 H Blood Pressure 203/130 H Pulse Oximetry 100 100 100 Oxygen Delivery 09/11/24 19:32 Temperature Pulse Rate 97 Respiratory Rate 19 Blood Pressure 217/131 H Pulse Oximetry 100 Oxygen Delivery Exam Const: General: comfortable and no acute distress HENMT: Mouth: Yes moist mucous membranes Other: Poor oral hygiene Eyes: Pupils: Equal, round and reactive pupils present Neck: Neck: supple Resp: Effort & Inspection: normal respiratory effort Auscultation: clear to auscultation bilaterally Cardio: Rate: regular rate Rhythm: regular rhythm GI: GI Palp: Yes Soft to palpation and No Tenderness to palpation present (GI) Neuro: Motor exam (neuro): 5/5 motor strength present throughout Other: Visual lebron intact. Cranial nerves 2-12 grossly intact Extrem: General: no edema H&P: Results Labs Labs: Short CBC 09/11/24 Range/Units 16:18 WBC 11.4 H (4.5-10.0) K/mm3 Hgb 13.8 L (14.0-18.0) g/dL Hct 42.6 (42.0-52.0) % Plt Count 301 (150-375) k/mm3 BMP 09/11/24 16:18 Sodium 140 Potassium 3.4 Chloride 102 Carbon Dioxide 30 BUN 16 Creatinine 1.74 H Glucose 108 Calcium 9.0 Cardiac Enzymes 09/11/24 Range/Units 16:18 Troponin I 0.040 H* (0.000-0.034) ng/mL Liver Function 09/11/24 Range/Units 16:18 Total Bilirubin 0.7 (0.2-1.3) mg/dL AST 19 (17-59) U/L ALT 27 (6-50) U/L Alkaline Phosphatase 85 (38-126) U/L Albumin 4.0 (3.5-5.1) g/dL Urine 09/11/24 Range/Units 16:18 Urine Color Yellow (Yellow) Urine Appearance Cloudy H (Clear) Urine pH 7.5 (5.0-9.0) Ur Specific [place] 1.020 (1.001-1.035) Urine Protein 2+ H (Negative) mg/dL Urine Glucose (UA) Negative (Negative) mg/dL Assessment and Plan Assessment and plan (1) Fall at home: Code(s): W19.XXXA - Unspecified fall, initial encounter; Y92.009 - Unspecified place in unspecified non-institutional (private) residence as the place of occurrence of the external cause Status: Acute (2) Noncompliance: Code(s): Z91.199 - Patient's noncompliance with other medical treatment and regimen due to unspecified reason Status: Acute (3) Uncontrolled hypertension: Code(s): I10 - Essential (primary) hypertension Status: Acute (4) History of stroke: Code(s): Z86.73 - Personal history of transient ischemic attack (TIA), and cerebral infarction without residual deficits Status: Acute (5) Rib pain on right side: Code(s): R07.81 - Pleurodynia Status: Acute (6) Hyperlipidemia: Code(s): E78.5 - Hyperlipidemia, unspecified Status: Acute (7) Elevated serum creatinine: Code(s): R79.89 - Other specified abnormal findings of blood chemistry Status: Acute (8) Leukocytosis: Code(s): D72.829 - Elevated white blood cell count, unspecified Status: Acute Plan 43-year-old male with a 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 He has not seen a PCP in a year. He lives with his mother who accompanies him today and provides history. Patient does not have medications. 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 Day prior to admission he fell in the bathroom around 9:00 p.m. while trying to turn off the light switch. He fell onto his right side but did not hit his head or have seizure activity or lose consciousness. He went to bed and when he woke up he reports he had blurry vision in the left eye but this has been going on and off for some time. Denies it currently. He had a stroke prior with aphasia and he has residual intermittent and uncontrollable bursts of laughter but otherwise can communicate clearly. Upon evaluation in the ER the patient reports he has no complaints other than achiness at the right lower ribs. Three view x-ray of the right ribs was performed without acute fracture demonstrated. 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 Blood pressure on arrival 232/160 and his mother confirms this is how it has been for a long time. He was given Coreg 25 mg p.o. x1 and hydralazine 10 mg IV x2 and his blood pressure systolic improved to 170. Further laboratory workup revealed a WBC of 11.4, hemoglobin 13.8, serum creatinine 1.74, BUN 16, troponin 0.040. Patient will be admitted on 09/11/2024 for hypertensive urgency, MARGARET versus CKD, leukocytosis, fall at home. ----- Fall at home -patient reports he slipped while trying to turn off the light and fell. No head strike. Head CT without acute abnormality on admission -PT OT ordered. -p.r.n. Tylenol and tramadol for right rib pain. Three view chest x-ray without rib fracture on admission History of CVA -was previously treated at outside hospital when he presented with aphasia. Family reports that he has residual intermittent bursts of laughter since then. They wonder if he can be treated for this. Advised follow-up with PCP/Psychiatry. -noncompliant. Start aspirin 81 mg p.o. q.day and atorvastatin 40 mg p.o. q.h.s. Hyperlipidemia -start atorvastatin 40 mg p.o. q.h.s. Hypertensive urgency -blood pressure 232/160 on arrival. Improved with hydralazine 10 mg IV x2 and Coreg 25 mg p.o. x1. -start amlodipine 10 mg p.o. q.day starting now. Labetalol 10 mg IV q.2 hours p.r.n. for SBP greater than 180. Do not need to be more aggressive than that since he has had severely elevated blood pressure for a long time now. Leukocytosis -possibly reactive. Check procalcitonin. No symptomatology or evidence to indicate infection. Elevated serum creatinine -no prior values. Suspect he has underlying hypertensive kidney disease. -start lactated Ringer's at 150 cc/hour and recheck serum creatinine in the a.m.. Check urinalysis, urine sodium, urine creatinine. Elevated serum troponin -this is likely due to demand ischemia due to hypertensive urgency. Patient denies chest pain. No acute ischemia on EKG. Continue to trend. Noncompliance -heavy counseling provided with his aunt and mother in the room. Advised to him the severe consequences of chronic uncontrolled hypertension and other conditions. They appear to be grateful. The patient reports understanding. He does not have a PCP, care coordination consulted ----- SCDs Lactated Ringer's infusion PTOT Patient would like to be full code Ambulates independently at baseline. Lives with his mother. Hospitalist MIPS Advance Care Plan I have confirmed that the patient's Advanced Care Plan is present, code status is documented, or surrogate decision maker is listed in patient medical record.: Yes Medication Reconciliation I have utilized all available resources to obtain, update and review the patien ts current medications (includes all prescriptions, OTC, herbals, cannabis, and nutritional supplements).: Yes
[2024-09-11] MEDS: amLODIPine BESYLATE 10 MG TABLET PO (20:58)
[2024-09-11 21:09] LABS: Troponin I 0.043 ng/mL (0.000-0.034)
[2024-09-11] MEDS: LACTATED RINGERS 1,000 ML 150 ML IV CONT (22:08)
--- NOTE | 2024-09-11 22:48 | ADMGEN ---
This patient, Ross Eubanks, was admitted to IMU Room 206-01 on 09/11/24 at 2225. Patient/family oriented to hospital policies and general routines including ID bracelet, bed and alarms, visiting hours, pain management, procedures, bathroom and other care routines, personal items, smoking policy, room service/diet, and visiting hours. Information on how to activate the Rapid Response Team has been discussed. Patient/Family are encouraged to report perceived risks to care and to ask questions if they do not understand what they are told or what they should do.
[2024-09-11 22:58] LABS: Creatinine Urine 126.7 mg/dL
[2024-09-11 23:02] LABS: Sodium Urine Random 114 meq/L
[2024-09-11] MEDS: ATORVASTATIN 40 MG TABLET PO (23:55)
[2024-09-11] MEDS: ASPIRIN 81 MG ENTERIC TABLET PO (23:55)
[2024-09-12] VITALS (19 sets, daily range): BP systolic 155–189; BP diastolic 95–113; PULSE 84–105; RESP 16–20; TEMP 36.4–37; O2SAT 97–100
--- NOTE | 2024-09-12 | ECHO_ITS ---
Patient Info Name: Ross Eubanks Age: 43 years : 1980 Gender: Male Ht: 65 in Wt: 202 lbs BSA: 2.09 m2 HR: 99 bpm BP: 177 / 110 mmHg Heart Rhythm: Sinus Rhythm Technical Quality: Good Exam Date: 09/12/2024 3:08 PM Exam Location: Echo Lab Exam Room: [facility] Patient Status: Inpatient Admit Date: 09/11/2024 Staff Ordering Physician: Laura Bryan MD Box Builder: Francisca Rasheed RDCS Attending Provider: Faviola Virgen MD Referring Physician: Randi ANGUIANO; Exam Type: CA echo doppler color flow Study Info Indications - CVA, HTN emergency Complete two-dimensional, color flow and Doppler transthoracic echocardiogram is performed. Summary 1. Complete two-dimensional, color flow and Doppler transthoracic echocardiogram is performed. 2. Left ventricular systolic function is mildly reduced, estimated at 40-45%. Hypokinesis of inferolateral and anterolateral segments. 3. There is severely increased left ventricular wall thickness. 4. The left ventricular diastolic function is grade I diastolic dysfunction. Left Ventricle Left ventricular chamber dimension is normal. Left ventricular systolic function is mildly reduced, estimated at 40-45%. Hypokinesis of inferolateral and anterolateral segments. There is severely increased left ventricular wall thickness. Left ventricular septal wall motion is normal. The left ventricular diastolic function is grade I diastolic dysfunction. Right Ventricle Right ventricular chamber dimension is normal. Right ventricular systolic function is normal. Left Atria Left atrial chamber dimension is mildly enlarged. Right Atria Right atrial chamber dimension is normal. Atrial Septum Intact interatrial septum visualized by color flow imaging. Aortic Valve The aortic valve is trileaflet. There is no aortic valve sclerosis. There is no aortic valve stenosis. There is no aortic valve regurgitation. Pulmonic Valve The pulmonic valve is normal. There is no pulmonic valve stenosis. There is no pulmonic regurgitation. Mitral Valve The mitral valve has normal leaflets. There is no mitral valve stenosis. There is no mitral valve regurgitation. Tricuspid Valve The tricuspid valve leaflets are normal. There is no significant tricuspid valve stenosis. There is no tricuspid valve regurgitation. Pericardium/Pleural The pericardium appears normal. There is no pericardial effusion. Inferior Vena Cava Normal inferior vena cava with >50% collapse upon inspiration consistent with Empty right atrial pressure, 5 mmHg. Aorta The aortic root size at the sinus of Valsalva is normal. The prox ascending aorta size is normal. Left Ventricular Outflow Tract Name Value Normal LVOT 2D LVOT Diameter 2.5 cm LVOT Doppler LVOT Peak Gradient 5 mmHg LVOT Mean Gradient 3 mmHg LVOT VTI 18 cm LVOT VTI/AV VTI Ratio 0.7 LVOT Stroke Volume 88 ml LVOT CO 8.4 l/min LVOT CI 4.0 l/min/m2 Pulmonic Valve Name Value Normal PV Doppler PV Peak Gradient 4 mmHg Mitral Valve Name Value Normal MV Doppler MV Peak Gradient 5 mmHg MV Mean Gradient 2 mmHg MV Decel [place] 500 cm/s2 MV PHT 49 ms MV Area (PHT) 4.5 cm2 4.0-5.0 MV Area (Cont Eq VTI) 4.2 cm2 MV Diastolic Function MV E Peak Velocity 85 cm/s MV A Peak Velocity 95 cm/s MV E/A 0.9 MV Decel Time 169 ms MV Annular TDI MV E/e' (Septal) 25.1 <=8.0 MV E/e' (Lateral) 18.9 <=8.0 MV E/e' (Average) 22.0 Tricuspid Valve Name Value Normal TV Regurgitation Doppler TR Peak Velocity 190 cm/s TR Peak Gradient 14 mmHg Estimated PAP/RSVP RA Pressure 5 mmHg <=5 PA Systolic Pressure 19 mmHg <36 RV Systolic Pressure 19 mmHg <36 Aortic Valve Name Value Normal AV Doppler AV Peak Velocity 152 cm/s AV Peak Gradient 9 mmHg AV Mean Gradient 6 mmHg AV VTI 26 cm AV Area (Cont Eq VTI) 3.4 cm2 >=3.0 AV Area (Cont Eq Finesse) 3.9 cm2 AV Regurgitation 2D LVOT Area 5.0 cm2 Ventricles Name Value Normal LV Dimensions 2D/MM IVS Diastolic Thickness (2D) 1.3 cm 0.6-1.0 LVID Diastole (2D) 6.1 cm 4.2-5.8 LVIW Diastolic Thickness (2D) 1.3 cm 0.6-1.0 LVID Systole (2D) 4.7 cm 2.5-4.0 LVOT Diameter 2.5 cm LV Mass (2D Cubed) 367.72 g 88.00-224.00 LV Mass Index (2D Cubed) 176 g/m2 49-115 Relative Wall Thickness (2D) 0.42 LV Fractional Shortening/Ejection Fraction 2D/MM LV Fractional Shortening (2D) 22 % 25-43 LV EF (2D Teicholz) 43 % 52-72 LV Diastolic Volume (4C MOD) 180 ml LV EF (4C MOD) 51 % LV Diastolic Length (4C) 9.3 cm LV Systolic Length (4C) 8.4 cm LV Stroke Volume (4C MOD) 92 ml Atria Name Value Normal LA Dimensions LA Volume (4C A-L) 101 ml Report Signatures
[2024-09-12 00:02] LABS: Troponin I 0.049 ng/mL (0.000-0.034)
[2024-09-12 05:06] LABS: Troponin I 0.046 ng/mL (0.000-0.034)
[2024-09-12] MEDS: LACTATED RINGERS 1,000 ML 150 ML IV CONT ×3 (06:56→18:38)
[2024-09-12] MEDS: ATORVASTATIN 40 MG TABLET PO (09:37)
[2024-09-12] MEDS: amLODIPine BESYLATE 10 MG TABLET PO (09:37)
[2024-09-12] MEDS: ASPIRIN 81 MG ENTERIC TABLET PO (09:37)
--- NOTE | 2024-09-12 14:04 | P.PNIM_ITS ---
Progress Note: A&P Assessment and Plan (1) Fall at home: Code(s): W19.XXXA - Unspecified fall, initial encounter; Y92.009 - Unspecified place in unspecified non-institutional (private) residence as the place of occurrence of the external cause Status: Acute (2) Noncompliance: Code(s): Z91.199 - Patient's noncompliance with other medical treatment and regimen due to unspecified reason Status: Acute (3) Uncontrolled hypertension: Code(s): I10 - Essential (primary) hypertension Status: Acute (4) History of stroke: Code(s): Z86.73 - Personal history of transient ischemic attack (TIA), and cerebral infarction without residual deficits Status: Acute (5) Rib pain on right side: Code(s): R07.81 - Pleurodynia Status: Acute (6) Hyperlipidemia: Code(s): E78.5 - Hyperlipidemia, unspecified Status: Acute (7) Elevated serum creatinine: Code(s): R79.89 - Other specified abnormal findings of blood chemistry Status: Acute (8) Leukocytosis: Code(s): D72.829 - Elevated white blood cell count, unspecified Status: Acute Plan Fall at home -patient reports he slipped while trying to turn off the light and fell. No head strike. Head CT without acute abnormality on admission -PT OT ordered. -p.r.n. Tylenol and tramadol for right rib pain. Three view chest x-ray without rib fracture on admission History of CVA -was previously treated at outside hospital when he presented with aphasia. Family reports that he has residual intermittent bursts of laughter since then. They wonder if he can be treated for this. Advised follow-up with PCP/Psychiatry. -noncompliant. Start aspirin 81 mg p.o. q.day and atorvastatin [address] head and CTA ordered order ECHO will consult neurology continue PT/ OT/ ST here consider DC home with on saturday Hyperlipidemia -start atorvastatin 40 mg p.o. q.h.s. Hypertensive urgency -blood pressure 232/160 on arrival. Improved with hydralazine 10 mg IV x2 and Coreg 25 mg p.o. x1. -start amlodipine 10 mg p.o. q.day starting now. Labetalol 10 mg IV q.2 hours p.r.n. for SBP greater than 180. Do not need to be more aggressive than that since he has had severely elevated blood pressure for a long time now. watch bp carefully Leukocytosis -possibly reactive. Check procalcitonin. No symptomatology or evidence to indicate infection. Elevated serum creatinine -no prior values. Suspect he has underlying hypertensive kidney disease. -cut back fluids NS at 70 cc per hour watch bmp Elevated serum troponin -this is likely due to demand ischemia due to hypertensive urgency. Patient denies chest pain. No acute ischemia on EKG. Continue to trend. Noncompliance -heavy counseling provided with his aunt and mother in the room. Advised to him the severe consequences of chronic uncontrolled hypertension and other conditio ns. They appear to be grateful. The patient reports understanding. 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 He has not seen a PCP in a year. He lives with his mother who accompanies him today and provides history. Patient does not have medications. 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 Day prior to admission he fell in the bathroom around 9:00 p.m. while trying to turn off the light switch. He fell onto his right side but did not hit his head or have seizure activity or lose consciousness. He went to bed and when he woke up he reports he had blurry vision in the left eye but this has been going on and off for some time. Denies it currently. He had a stroke prior with aphasia and he has residual intermittent and uncontrollable bursts of laughter but otherwise can communicate clearly. 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 He had a stroke prior with aphasia and some dysphagia. Admitted for CVA and uncontrolled HTN and non compliance to BP medications ct head shows - No acute intracranial hemorrhage or suspicious mass effect. Findings within the periventricular white matter, far advanced in a patient of this age. Prior cerebral infarction within the left occipital lobe. CTA shows - Unremarkable CTA head and neck. Review of Systems Review of Systems: Some aphasia and some dysphagia. Exam Narrative: GENERAL: Well-appearing, well-nourished, and in no acute distress. HEAD: Normocephalic, atraumatic. EYES: PERRLA and EOMI. ENT: Nares clear, no rhinorrhea or epistaxis. Mucous membranes moist. Oropharynx without tonsillar hypertrophy exudate or other lesions. Bilateral TMs pearly ruano non-bulging NECK: Supple. No adenopathy or masses. CHEST: Clear to auscultation. No respiratory distress. No wheezes rales or rhonchi HEART: Regular rate and rhythm. No murmur heard. Normal peripheral pulses. EXTREMITIES: Normal range of motion. No edema or obvious deformity. Strength equal in bilateral upper and lower extremities (5/5) SKIN: Warm, dry, no rash. NEURO: No focal deficits. Alert and oriented x3. Cranial nerves 2-12 grossly intact PSYCH: Normal mood and affect Objective Data Vital Signs Vital Signs: Vital Signs - 24 hr 09/11/24 15:56 09/11/24 16:41 09/11/24 16:49 Temperature 36.6 C Pulse Rate 102 H 103 H 90 Respiratory Rate 17 14 Blood Pressure 232/160 H 198/111 H Pulse Oximetry 100 98 100 Oxygen Delivery Room Air 09/11/24 16:51 09/11/24 17:03 09/11/24 17:15 Temperature Pulse Rate 90 88 86 Respiratory Rate 9 L 19 Blood Pressure 197/120 H Pulse Oximetry 100 100 99 Oxygen Delivery 09/11/24 17:16 09/11/24 17:39 09/11/24 17:40 Temperature Pulse Rate 89 96 99 Respiratory Rate 20 22 H 19 Blood Pressure 207/132 H 226/186 H Pulse Oximetry 97 100 Oxygen Delivery 09/11/24 18:03 09/11/24 18:04 09/11/24 18:15 Temperature Pulse Rate 105 H 103 H 102 H Respiratory Rate 33 H 24 H 26 H Blood Pressure 229/134 H Pulse Oximetry 100 100 Oxygen Delivery 09/11/24 18:16 09/11/24 18:17 09/11/24 18:36 Temperature Pulse Rate 107 H 107 H 117 H Respiratory Rate 28 H 20 19 Blood Pressure 226/130 H Pulse Oximetry 100 100 100 Oxygen Delivery 09/11/24 18:45 09/11/24 18:48 09/11/24 18:57 Temperature Pulse Rate 118 H 143 H 108 H Respiratory Rate 28 H 21 H 20 Blood Pressure 214/151 H 217/135 H Pulse Oximetry 99 Oxygen Delivery 09/11/24 19:00 09/11/24 19:01 09/11/24 19:02 Temperature Pulse Rate 106 H 104 H 104 H Respiratory Rate 15 18 24 H Blood Pressure 189/130 H Pulse Oximetry 100 100 100 Oxygen Delivery 09/11/24 19:15 09/11/24 19:17 09/11/24 19:30 Temperature Pulse Rate 103 H 105 H 98 Respiratory Rate 20 21 H 29 H Blood Pressure 203/130 H Pulse Oximetry 100 100 100 Oxygen Delivery 09/11/24 19:32 09/11/24 19:33 09/11/24 19:45 Temperature Pulse Rate 97 97 91 Respiratory Rate 19 16 20 Blood Pressure 217/131 H Pulse Oximetry 100 100 100 Oxygen Delivery 09/11/24 19:46 09/11/24 20:00 09/11/24 20:01 Temperature Pulse Rate 92 96 93 Respiratory Rate 18 21 H 20 Blood Pressure 174/112 H 175/107 H Pulse Oximetry 97 100 100 Oxygen Delivery 09/11/24 20:15 09/11/24 20:16 09/11/24 20:30 Temperature Pulse Rate 103 H 102 H 98 Respiratory Rate 21 H 18 19 Blood Pressure 211/111 H Pulse Oximetry 100 92 100 Oxygen Delivery 09/11/24 20:45 09/11/24 20:47 09/11/24 21:00 Temperature Pulse Rate 102 H 107 H 108 H Respiratory Rate 20 13 25 H Blood Pressure 163/104 H Pulse Oximetry 100 99 Oxygen Delivery 09/11/24 21:15 09/11/24 21:16 09/11/24 21:30 Temperature Pulse Rate 107 H 106 H 107 H Respiratory Rate 14 18 24 H Blood Pressure 167/102 H Pulse Oximetry 97 99 98 Oxygen Delivery 09/11/24 21:31 09/11/24 21:45 09/11/24 21:46 Temperature Pulse Rate 107 H 104 H 103 H Respiratory Rate 12 26 H 21 H Blood Pressure 175/97 H 148/87 H Pulse Oximetry 96 100 98 Oxygen Delivery 09/11/24 22:00 09/11/24 22:35 09/11/24 22:38 Temperature 36.8 C Pulse Rate 109 H 102 H 60 Respiratory Rate 21 H 16 Blood Pressure 152/88 H Pulse Oximetry 98 98 Oxygen Delivery 09/11/24 22:39 09/11/24 22:56 09/11/24 23:33 Temperature 36.8 C Pulse Rate 109 H 98 Respiratory Rate 16 16 16 Blood Pressure 148/87 H 150/95 H Pulse Oximetry 98 98 99 Oxygen Delivery Room Air 09/11/24 23:50 09/12/24 00:00 09/12/24 02:00 Temperature Pulse Rate 98 105 H 101 H Respiratory Rate 16 Blood Pressure Pulse Oximetry 99 Oxygen Delivery Room Air 09/12/24 03:37 09/12/24 04:00 09/12/24 04:00 Temperature 36.8 C Pulse Rate 92 92 93 Respiratory Rate 16 16 Blood Pressure 156/95 H Pulse Oximetry 99 99 Oxygen Delivery Room Air 09/12/24 05:25 09/12/24 07:57 09/12/24 08:00 Temperature 36.8 C Pulse Rate 99 98 Respiratory Rate 20 Blood Pressure 155/108 H 178/113 H Pulse Oximetry 97 Oxygen Delivery 09/12/24 08:00 09/12/24 08:00 09/12/24 10:00 Temperature Pulse Rate 98 98 100 Respiratory Rate 20 Blood Pressure Pulse Oximetry 97 Oxygen Delivery Room Air 09/12/24 11:30 09/12/24 12:00 Temperature 36.8 C Pulse Rate 99 Respiratory Rate 20 Blood Pressure 177/110 H Pulse Oximetry 100 Oxygen Delivery Room Air Intake/Output Intake/Output: Intake & Output 09/09/24 09/10/24 09/11/24 09/12/24 23:59 23:59 23:59 23:59 Intake Total 1520 Output Total 390 Balance 1130 Meds/Results Medications: Active Medications Generic Name Dose Route Start Last Admin Trade Name Freq PRN Reason Stop Dose Admin Acetaminophen 500 mg 09/11/24 20:39 Acetaminophen 500 Mg Tablet PO Q4H PRN Mild Pain (1-3) or Fever Amlodipine Besylate 10 mg 09/12/24 09:00 09/12/24 09:37 Amlodipine Besylate 10 Mg Tablet PO 10 mg DAILY JEFFREY Administration Aspirin 81 mg 09/11/24 20:40 09/12/24 09:37 Aspirin 81 Mg Enteric Tablet PO 81 mg QAM JEFFREY Administration Atorvastatin Calcium 40 mg 09/11/24 20:40 09/12/24 09:37 Atorvastatin 40 Mg Tablet PO 40 mg DAILY JEFFREY Administration Lactated Ringer's 1,000 mls @ 150 mls/hr 09/11/24 20:30 09/12/24 06:56 Lr - Lactated Ringers Iv IV CONT 150 mls/hr .[id number] JEFFREY Administration Labetalol HCl 10 mg 09/11/24 20:26 Labetalol Hcl Inj 100 Mg/20 Ml Vial IV PUSH Q2HR PRN hypertension Tramadol HCl 25 mg 09/11/24 20:39 Tramadol Hcl (*Crx) 25 Mg Tablet PO Q6H PRN Pain Rated 4-6 Radiology Results: ITS Impressions Ribs w/Chest X-Ray 09/11/24 17:11 IMPRESSION: No acute displaced right-sided rib fracture. The lungs are clear. Head CT 09/11/24 18:26 Impression: No acute intracranial hemorrhage or suspicious mass effect. Findings within the periventricular white matter, far advanced in a patient of this age. Prior cerebral infarction within the left occipital lobe. Head/Neck CTA 09/11/24 18:39 IMPRESSION: 1. Unremarkable CTA head and neck. Percent stenosis per NASCET criteria is 0% Labs Labs: Laboratory Results - last 24 hr 09/11/24 09/11/24 09/11/24 16:18 20:30 23:28 WBC 11.4 H RBC 5.08 Hgb 13.8 L Hct 42.6 MCV 83.9 MCH 27.2 MCHC 32.4 RDW 14.1 Plt Count 301 MPV 11.4 H Immature Gran % (Auto) 0.3 Neut % (Auto) 66.6 Lymph % (Auto) 22.0 [place] % (Auto) 8.1 Eos % (Auto) 2.4 Baso % (Auto) 0.6 Lymph # (Auto) 2.51 [place] # (Auto) 0.9 H Eos # (Auto) 0.3 Baso # (Auto) 0.1 Abs Immat Gran (auto) 0.03 Absolute Neuts (auto) 7.6 H Absolute Nucleated RBC 0.000 Nucleated RBC % 0.0 PT 14.3 INR 1.1 APTT 44.9 H Sodium 140 Potassium 3.4 Chloride 102 Carbon Dioxide 30 Anion Gap 8 BUN 16 Creatinine 1.74 H Estim Creat Clear Calc Not Reportable Estimated GFR 52 L Glucose 108 POC Capillary Glucose 108 H Calcium 9.0 Total Bilirubin 0.7 AST 19 ALT 27 Alkaline Phosphatase 85 Troponin I 0.040 H* 0.043 H* 0.049 H* Total Protein 8.0 Albumin 4.0 Urine Color Yellow Urine Appearance Cloudy H Urine pH 7.5 Ur Specific [place] 1.020 Urine Protein 2+ H Urine Glucose (UA) Negative Urine Ketones Negative Ur Blood (Man) Negative Urine Nitrate Negative Urine Bilirubin Negative Urine Urobilinogen 0.2 Leukocyte Esterase Rfl Negative Urine RBC 0-2 Urine WBC 0-5 Ur Squamous Epith Cells None seen Urine Bacteria None seen Urine Casts 3-5 Ur Random Sodium 114 Urine Creatinine 126.7 Urine Opiates Screen Negative Urine Methadone Screen Negative Ur Barbiturates Screen Negative Ur Phencyclidine Scrn Negative Ur Amphetamine Screen Negative U Benzodiazepines Scrn Negative Urine Cocaine Screen Negative U Cannabinoids Screen Negative 09/12/24 04:16 WBC RBC Hgb Hct MCV MCH MCHC RDW Plt Count MPV Immature Gran % (Auto) Neut % (Auto) Lymph % (Auto) [place] % (Auto) Eos % (Auto) Baso % (Auto) Lymph # (Auto) [place] # (Auto) Eos # (Auto) Baso # (Auto) Abs Immat Gran (auto) Absolute Neuts (auto) Absolute Nucleated RBC Nucleated RBC % PT INR APTT Sodium Potassium Chloride Carbon Dioxide Anion Gap BUN Creatinine Estim Creat Clear Calc Estimated GFR Glucose POC Capillary Glucose Calcium Total Bilirubin AST ALT Alkaline Phosphatase Troponin I 0.046 H* Total Protein Albumin Urine Color Urine Appearance Urine pH Ur Specific [place] Urine Protein Urine Glucose (UA) Urine Ketones Ur Blood (Man) Urine Nitrate Urine Bilirubin Urine Urobilinogen Leukocyte Esterase Rfl Urine RBC Urine WBC Ur Squamous Epith Cells Urine Bacteria Urine Casts Ur Random Sodium Urine Creatinine Urine Opiates Screen Urine Methadone Screen Ur Barbiturates Screen Ur Phencyclidine Scrn Ur Amphetamine Screen U Benzodiazepines Scrn Urine Cocaine Screen U Cannabinoids Screen
[2024-09-12] MEDS: SODIUM CHLORIDE 0.9% IV 1,000 ML 70 ML IV CONT (16:48)
[2024-09-12 17:24] LABS: Basophils Absolute Auto 0.1 K/mm3 (0.0-0.1); Basophils Percent Auto 0.8 % (0.2-1.2); Eosinophils Absolute Auto 0.3 K/mm3 (0-0.3); Eosinophils Percent Auto 3.1 % (0-4.4); Hematocrit 42.7 % (42.0-52.0); Hemoglobin 13.8 g/dL (14.0-18.0); Immature Granulocyte Absolute 0.02 K/mm3 (0.00-0.031); Immature Granulocyte Percent A 0.2 % (0-0.5); Lymphocytes Absolute Auto 2.52 K/mm3 (0.9-3.2); Lymphocytes Percent Auto 23.3 % (18.3-44.2); Mean Corpuscular HGB Conc 32.3 g/dl (32-36); Mean Corpuscular Hemoglobin 27.2 pg (26-34); Mean Corpuscular Volume 84.1 fl (80-100); Mean Platelet Volume 11.2 fl (7.4-10.4); Monocytes Absolute Auto 0.7 K/mm3 (0.1-0.6); Monocytes Percent Auto 6.5 % (2.6-8.5); Neutrophils Absolute Auto 7.2 K/mm3 (1.3-6.7); Neutrophils Percent Auto 66.1 % (45.5-73.1); Platelet Count Result 299 k/mm3 (150-375); Red Blood Count 5.08 M/mm3 (4.6-6.20); Red Cell Distribution Width 14.5 % (11.5-14.5); White Blood Count 10.8 K/mm3 (4.5-10.0)
[2024-09-12 17:33] LABS: Anion Gap 11 mmol/L (4-12); Blood Urea Nitrogen 21 mg/dL (9-20); Calcium 9.1 mg/dL (8.4-10.2); Carbon Dioxide 25 mmol/L (22-30); Chloride 107 mmol/L (98-107); Estimated CRCL calculation 43 ml/min; Estimated Glomerular Filt Rate 42; Glucose 128 mg/dL (65-110); Magnesium 2.1 mg/dL (1.6-2.3); Potassium 3.4 mmol/L (3.4-5.0); Sodium 143 mmol/L (137-145)
[2024-09-12 17:50] LABS: Procalcitonin 0.1 ng/mL
[2024-09-12] MEDS: LABETALOL HCL INJ 100 MG/20 ML VIAL 10 MG IV PUSH (22:12)
[2024-09-12] MEDS: hydrALAZINE 5 MG TABLET PO (23:20)
[2024-09-13] VITALS (23 sets, daily range): BP systolic 163–184; BP diastolic 66–118; PULSE 80–112; RESP 16–20; TEMP 36.5–37; O2SAT 97–100
[2024-09-13] MEDS: LABETALOL HCL INJ 100 MG/20 ML VIAL 10 MG IV PUSH ×2 (03:30→22:02)
[2024-09-13] MEDS: hydrALAZINE 5 MG TABLET PO ×2 (05:18→07:55)
[2024-09-13] MEDS: SODIUM CHLORIDE 0.9% IV 1,000 ML 70 ML IV CONT (06:57)
[2024-09-13] MEDS: ASPIRIN 81 MG ENTERIC TABLET PO (07:55)
[2024-09-13] MEDS: ATORVASTATIN 40 MG TABLET PO (07:55)
[2024-09-13] MEDS: amLODIPine BESYLATE 10 MG TABLET PO (07:56)
--- NOTE | 2024-09-13 09:18 | PCSTNOTE ---
Please refer to the Bedside Swallow Evaluation in the EMR. Please note, silent aspiration cannot be ruled out at bedside.
--- NOTE | 2024-09-13 10:55 | P.PNIM_ITS ---
Progress Note: A&P Assessment and Plan (1) Fall at home: Code(s): W19.XXXA - Unspecified fall, initial encounter; Y92.009 - Unspecified place in unspecified non-institutional (private) residence as the place of occurrence of the external cause Status: Acute (2) Noncompliance: Code(s): Z91.199 - Patient's noncompliance with other medical treatment and regimen due to unspecified reason Status: Acute (3) Uncontrolled hypertension: Code(s): I10 - Essential (primary) hypertension Status: Acute (4) History of stroke: Code(s): Z86.73 - Personal history of transient ischemic attack (TIA), and cerebral infarction without residual deficits Status: Acute (5) Rib pain on right side: Code(s): R07.81 - Pleurodynia Status: Acute (6) Hyperlipidemia: Code(s): E78.5 - Hyperlipidemia, unspecified Status: Acute (7) Elevated serum creatinine: Code(s): R79.89 - Other specified abnormal findings of blood chemistry Status: Acute (8) Leukocytosis: Code(s): D72.829 - Elevated white blood cell count, unspecified Status: Acute Plan Fall at home -patient reports he slipped while trying to turn off the light and fell. No head strike. Head CT without acute abnormality on admission -PT OT ordered. -p.r.n. Tylenol and tramadol for right rib pain. Three view chest x-ray without rib fracture on admission History of CVA -was previously treated at outside hospital when he presented with aphasia. Family reports that he has residual intermittent bursts of laughter since then. They wonder if he can be treated for this. Advised follow-up with PCP/Psychiatry. -noncompliant. Start aspirin 81 mg p.o. q.day and atorvastatin [address] head and CTA ordered results reviwed ECHO ordered will consult neurology continue PT/ OT/ ST here consider DC home with on saturday D/w ST this morning Hyperlipidemia -start atorvastatin 40 mg p.o. q.h.s. Hypertensive urgency -blood pressure 232/160 on arrival. Improved with hydralazine 10 mg IV x2 and Coreg 25 mg p.o. x1. -start amlodipine 10 mg p.o. q.day starting now. Labetalol 10 mg IV q.2 hours p.r.n. for SBP greater than 180. Do not need to be more aggressive than that since he has had severely elevated blood pressure for a long time now. watch bp carefully Bp running high overnite will order some PRN BP meds Leukocytosis -possibly reactive. Check procalcitonin. No symptomatology or evidence to indicate infection. Elevated serum creatinine -no prior values. Suspect he has underlying hypertensive kidney disease. -cut back fluids NS at 50 cc per hour watch bmp Elevated serum troponin -this is likely due to demand ischemia due to hypertensive urgency. Patient denies chest pain. No acute ischemia on EKG. Continue to trend. Noncompliance -heavy counseling provided with his aunt and mother in the room. Advised to him the severe consequences of chronic uncontrolled hypertension and other conditions. They appear to be grateful. The patient reports understanding. He does not have a PCP, care coordination consulted Subjective Date/time seen: 09/13/24 10:55 Interval history: 43-year-old male with a 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 He has not seen a PCP in a year. He lives with his mother who accompanies him today and provides history. Patient does not have medications. 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 Day prior to admission he fell in the bathroom around 9:00 p.m. while trying to turn off the light switch. He fell onto his right side but did not hit his head or have seizure activity or lose consciousness. He went to bed and when he woke up he reports he had blurry vision in the left eye but this has been going on and off for some time. Denies it currently. He had a stroke prior with aphasia and he has residual intermittent and uncontrollable bursts of laughter but otherwise can communicate clearly. Pt able to walk and talk looks weak generally eats softer diet this has been intermediate problem. He had a stroke prior with aphasia and some dysphagia. Admitted for CVA and uncontrolled HTN and non compliance to BP medications ct head shows - No acute intracranial hemorrhage or suspicious mass effect. Findings within the periventricular white matter, far advanced in a patient of this age. Prior cerebral infarction within the left occipital lobe. CTA shows - Unremarkable CTA head and neck. Pt awaiting echo and neurology review Plan to continue pt/ ot / st here and consider dc james with home health services Pt is on iv fluid due to elevated creat levels bp running high all night will order prn bp meds Review of Systems Review of Systems: Some aphasia and some dysphagia. Exam Narrative: GENERAL: Well-appearing, well-nourished, and in no acute distress. HEAD: Normocephalic, atraumatic. EYES: PERRLA and EOMI. ENT: Nares clear, no rhinorrhea or epistaxis. Mucous membranes moist. Oropharynx without tonsillar hypertrophy exudate or other lesions. Bilateral TMs pearly ruano non-bulging NECK: Supple. No adenopathy or masses. CHEST: Clear to auscultation. No respiratory distress. No wheezes rales or rhonchi HEART: Regular rate and rhythm. No murmur heard. Normal peripheral pulses. EXTREMITIES: Normal range of motion. No edema or obvious deformity. Strength equal in bilateral upper and lower extremities (5/5) SKIN: Warm, dry, no rash. NEURO: No focal deficits. Alert and oriented x3. Cranial nerves 2-12 grossly intact PSYCH: Normal mood and affect Objective Data Vital Signs Vital Signs: Vital Signs - 24 hr 09/12/24 11:30 09/12/24 11:45 09/12/24 12:00 Temperature 36.8 C Pulse Rate 99 Respiratory Rate 20 Blood Pressure 177/110 H Pulse Oximetry 100 Oxygen Delivery Room Air Room Air 09/12/24 12:00 09/12/24 12:00 09/12/24 14:00 Temperature Pulse Rate 93 93 94 Respiratory Rate 20 Blood Pressure Pulse Oximetry 100 Oxygen Delivery Room Air 09/12/24 15:49 09/12/24 16:00 09/12/24 16:00 Temperature 36.8 C Pulse Rate 93 93 93 Respiratory Rate 20 20 Blood Pressure 178/96 H Pulse Oximetry 100 100 Oxygen Delivery Room Air 09/12/24 18:00 09/12/24 19:25 09/12/24 20:00 Temperature 37.0 C Pulse Rate 93 96 96 Respiratory Rate 17 17 Blood Pressure 189/103 H Pulse Oximetry 100 100 Oxygen Delivery Room Air 09/12/24 20:00 09/12/24 22:00 09/12/24 22:12 Temperature Pulse Rate 96 96 97 Respiratory Rate Blood Pressure Pulse Oximetry Oxygen Delivery 09/12/24 23:14 09/12/24 23:15 09/13/24 00:00 Temperature 36.4 C L Pulse Rate 84 84 87 Respiratory Rate 20 20 Blood Pressure 177/106 H Pulse Oximetry 99 99 Oxygen Delivery Room Air 09/13/24 00:45 09/13/24 02:00 09/13/24 03:02 Temperature 36.8 C Pulse Rate 85 85 Respiratory Rate 20 Blood Pressure 175/96 H 180/118 H Pulse Oximetry 100 Oxygen Delivery 09/13/24 03:02 09/13/24 03:09 09/13/24 03:30 Temperature Pulse Rate 85 85 Respiratory Rate 20 Blood Pressure 184/112 H Pulse Oximetry 100 Oxygen Delivery Room Air 09/13/24 04:00 09/13/24 04:41 09/13/24 04:41 Temperature Pulse Rate 83 80 Respiratory Rate Blood Pressure 169/104 H 165/100 H Pulse Oximetry Oxygen Delivery 09/13/24 05:31 09/13/24 08:00 09/13/24 08:00 Temperature Pulse Rate 88 83 83 Respiratory Rate 18 Blood Pressure Pulse Oximetry 98 Oxygen Delivery Room Air 09/13/24 08:21 09/13/24 10:00 Temperature 36.7 C Pulse Rate 83 84 Respiratory Rate 18 Blood Pressure 170/103 H Pulse Oximetry 98 Oxygen Delivery Intake/Output Intake/Output: Intake & Output 09/10/24 09/11/24 09/12/24 09/13/24 23:59 23:59 23:59 23:59 Intake Total 2895 1230.5 Output Total 930 500 Balance 1965 730.5 Meds/Results Medications: Active Medications Generic Name Dose Route Start Last Admin Trade Name Freq PRN Reason Stop Dose Admin Acetaminophen 500 mg 09/11/24 20:39 Acetaminophen 500 Mg Tablet PO Q4H PRN Mild Pain (1-3) or Fever Amlodipine Besylate 10 mg 09/12/24 09:00 09/13/24 07:56 Amlodipine Besylate 10 Mg Tablet PO 10 mg DAILY JEFFREY Administration Aspirin 81 mg 09/11/24 20:40 09/13/24 07:55 Aspirin 81 Mg Enteric Tablet PO 81 mg QAM JEFFREY Administration Atorvastatin Calcium 40 mg 09/11/24 20:40 09/13/24 07:55 Atorvastatin 40 Mg Tablet PO 40 mg DAILY JEFFREY Administration Hydralazine HCl 5 mg 09/12/24 14:13 09/13/24 07:55 Hydralazine 5 Mg Tablet PO 5 mg TID PRN Administration Blood Pressure - High Sodium Chloride 1,000 mls @ 70 mls/hr 09/12/24 14:15 09/13/24 06:57 Normal Saline Iv IV CONT 70 mls/hr .[id number] JEFFREY Administration Labetalol HCl 10 mg 09/11/24 20:26 09/13/24 03:30 Labetalol Hcl Inj 100 Mg/20 Ml Vial IV PUSH 10 mg Q2HR PRN Administration hypertension Perflutren Lipid Microsphere 0 ml 09/12/24 14:14 Perflutren Lipid Microspheres 1.5 Ml Vial Diluted To 10 Ml Total Volume IV PUSH 09/15/24 14:15 ONCE PRN adequate visualization Protocol Perflutren Lipid Microsphere 0 ml 09/13/24 09:59 Perflutren Lipid Microspheres 1.5 Ml Vial Diluted To 10 Ml Total Volume IV PUSH 09/16/24 09:59 ONCE PRN adequate visualization Protocol Tramadol HCl 25 mg 09/11/24 20:39 Tramadol Hcl (*Crx) 25 Mg Tablet PO Q6H PRN Pain Rated 4-6 Radiology Results: ITS Impressions Ribs w/Chest X-Ray 09/11/24 17:11 IMPRESSION: No acute displaced right-sided rib fracture. The lungs are clear. Head CT 09/11/24 18:26 Impression: No acute intracranial hemorrhage or suspicious mass effect. Findings within the periventricular white matter, far advanced in a patient of this age. Prior cerebral infarction within the left occipital lobe. Head/Neck CTA 09/11/24 18:39 IMPRESSION: 1. Unremarkable CTA head and neck. Percent stenosis per NASCET criteria is 0% Labs Labs: Laboratory Results - last 24 hr 09/12/24 17:18 WBC 10.8 H RBC 5.08 Hgb 13.8 L Hct 42.7 MCV 84.1 MCH 27.2 MCHC 32.3 RDW 14.5 Plt Count 299 MPV 11.2 H Immature Gran % (Auto) 0.2 Neut % (Auto) 66.1 Lymph % (Auto) 23.3 [place] % (Auto) 6.5 Eos % (Auto) 3.1 Baso % (Auto) 0.8 Lymph # (Auto) 2.52 [place] # (Auto) 0.7 H Eos # (Auto) 0.3 Baso # (Auto) 0.1 Abs Immat Gran (auto) 0.02 Absolute Neuts (auto) 7.2 H Absolute Nucleated RBC 0.000 Nucleated RBC % 0.0 Sodium 143 Potassium 3.4 Chloride 107 Carbon Dioxide 25 Anion Gap 11 BUN 21 H Creatinine 2.08 H Estim Creat Clear Calc 43 Estimated GFR 42 L Glucose 128 H Calcium 9.1 Magnesium 2.1 Procalcitonin 0.1
--- NOTE | 2024-09-13 13:29 | P.CONNEU_ITS ---
Assessment and Plan Assessment and plan (1) History of stroke: Code(s): Z86.73 - Personal history of transient ischemic attack (TIA), and cerebral infarction without residual deficits Status: Acute (2) Uncontrolled hypertension: Code(s): I10 - Essential (primary) hypertension Status: Acute (3) Noncompliance: Code(s): Z91.199 - Patient's noncompliance with other medical treatment and regimen due to unspecified reason Status: Acute (4) Fall at home: Code(s): W19.XXXA - Unspecified fall, initial encounter; Y92.009 - Unspecified place in unspecified non-institutional (private) residence as the place of occurrence of the external cause Status: Acute Plan 1. Abnormal behavior 2. hypertension 3 cardiomyopathy 4 status post stroke in the past with abnormal CT scan revealing left occipital lobe old stroke which consistent with this visual difficulties and clinical examination 5. Status post fall at home 6. Noncompliance with the medication. But suggest to continue aspirin 81mg daily and also suggest to the family or the of the vacation for the seizure in the future. Consult date: 09/15/24 HPI: Ross Eubanks is a 43 year old male admitted to the hospital subsequent to fall at home in the bathroom injuring his left-sided ribs as well but with no history of head trauma or being unconscious and subsequent complaint of double vision in the left eye in the morning but at the same time no complain when he visited the ER and also with a history that he stopped taking his medication about 5 months ago patient reportedly has had stroke in June of 2023, with history of untreated hypertension and with no history of any other associated problems, not allergic to any medications, has history of stroke, hyperlipidemia hypertension and on initial evaluation in the emergency room exam but grossly nonfocal his vital signs were abnormal with pulse of 102, blood pressure 232/160, CBC was normal, BMP was normal except the creatinine of 1.74, and troponin of 0.040 drug screen was negative, chest x-ray was negative for any fracture initial CT scan was negative for the bleed except the documentation of previous left occipital lobe infarction . Evaluation up until now includes the CTA of the head and neck with no involvement of the large vessels and and echocardiogram on the floor revealing severely increased left ventricular wall thickness but no PFO. Review of Systems 2 Review of Systems: All systems reviewed & are unremarkable except as noted in HPI and below PMFSH Past Medical History Medical History History of stroke History of hyperlipidemia History of hypertension Family History Family History Mother Hypertension Father Diabetes mellitus Sibling No active medical problems Sibling Congestive heart failure Social History Social History Smoking status: Never smoker Second hand tobacco smoke exposure: No Alcohol intake: never Substance use: never Substance use type: does not use Do You Feel Safe in your Home?: Yes Lack of Transportation: YES Lack of Food: Never True Current Housing: I Have Housing Concerned About Future Housing: No Difficulty Paying Gas/Electric Bills: No Difficulty Paying for Meds: YES Currently Unemployed: No Education: High School Diploma/GED Difficulty w/ Childcare or Family Care: No Spiritual care concerns: No Meds Home Medications and Allergies Home Medications ?Medication ?Instructions ?Recorded ?Confirmed ?Type No Home Medications 09/11/24 09/11/24 History Allergies Allergy/AdvReac Type Severity Reaction Status Date / Time No Known Allergies Allergy Verified 09/11/24 23:02 Vital Signs Vital Signs - 24 hr 09/12/24 14:00 09/12/24 15:49 09/12/24 16:00 Temperature 36.8 C Pulse Rate 94 93 93 Respiratory Rate 20 20 Blood Pressure 178/96 H Pulse Oximetry 100 100 Oxygen Delivery Room Air 09/12/24 16:00 09/12/24 18:00 09/12/24 19:25 Temperature Pulse Rate 93 93 96 Respiratory Rate 17 Blood Pressure Pulse Oximetry 100 Oxygen Delivery Room Air 09/12/24 20:00 09/12/24 20:00 09/12/24 22:00 Temperature 37.0 C Pulse Rate 96 96 96 Respiratory Rate 17 Blood Pressure 189/103 H Pulse Oximetry 100 Oxygen Delivery 09/12/24 22:12 09/12/24 23:14 09/12/24 23:15 Temperature 36.4 C L Pulse Rate 97 84 84 Respiratory Rate 20 20 Blood Pressure 177/106 H Pulse Oximetry 99 99 Oxygen Delivery Room Air 09/13/24 00:00 09/13/24 00:45 09/13/24 02:00 Temperature Pulse Rate 87 85 Respiratory Rate Blood Pressure 175/96 H Pulse Oximetry Oxygen Delivery 09/13/24 03:02 09/13/24 03:02 09/13/24 03:09 Temperature 36.8 C Pulse Rate 85 85 Respiratory Rate 20 20 Blood Pressure 180/118 H 184/112 H Pulse Oximetry 100 100 Oxygen Delivery Room Air 09/13/24 03:30 09/13/24 04:00 09/13/24 04:41 Temperature Pulse Rate 85 83 Respiratory Rate Blood Pressure 169/104 H Pulse Oximetry Oxygen Delivery 09/13/24 04:41 09/13/24 05:31 09/13/24 08:00 Temperature Pulse Rate 80 88 83 Respiratory Rate 18 Blood Pressure 165/100 H Pulse Oximetry 98 Oxygen Delivery Room Air 09/13/24 08:00 09/13/24 08:21 09/13/24 10:00 Temperature 36.7 C Pulse Rate 83 83 84 Respiratory Rate 18 Blood Pressure 170/103 H Pulse Oximetry 98 Oxygen Delivery 09/13/24 12:00 09/13/24 12:00 09/13/24 12:30 Temperature 36.7 C Pulse Rate 84 84 90 Respiratory Rate 18 18 Blood Pressure 168/92 H Pulse Oximetry 98 97 Oxygen Delivery Room Air Exam 2 Narrative: Revealed him to be awake alert cooperative in no obvious acute distress, head normocephalic with no bruit, ear nose throat examination normal, neck supple with no meningeal signs no cervical bruit no thyromegaly no lymphadenopathy, heart regular with no murmur, lungs clear to auscultation with no rhonchi or crepitation, on soft nontender with normal bowel sounds, neurologically he is awake alert in no obvious acute distress his speech not dysphasic not dysarthric but somewhat slow to respond but is round regular lebron of vision full extraocular movements full no nystagmus face symmetrical tongue midline motor examination revealed him to have decrease in his strength but no focal deficit X is symmetric plantars down. Results Labs 09/12/24 17:18 09/14/24 04:56 Labs: Short CBC 09/12/24 Range/Units 17:18 WBC 10.8 H (4.5-10.0) K/mm3 Hgb 13.8 L (14.0-18.0) g/dL Hct 42.7 (42.0-52.0) % Plt Count 299 (150-375) k/mm3 [facility] 09/12/24 17:18 Sodium 143 Potassium 3.4 Chloride 107 Carbon Dioxide 25 BUN 21 H Creatinine 2.08 H Glucose 128 H Calcium 9.1
[2024-09-13] MEDS: hydrALAZINE 10 MG TABLET PO ×2 (13:37→17:46)
[2024-09-13] MEDS: SODIUM CHLORIDE 0.9% IV 1,000 ML 50 ML IV CONT (21:47)
[2024-09-14] VITALS (18 sets, daily range): BP systolic 158–190; BP diastolic 96–124; PULSE 74–104; RESP 16–20; TEMP 36.6–36.9; O2SAT 99–100
[2024-09-14] MEDS: LABETALOL HCL INJ 100 MG/20 ML VIAL 20 MG IV PUSH (01:17)
[2024-09-14 05:19] LABS: Anion Gap 9 mmol/L (4-12); Blood Urea Nitrogen 16 mg/dL (9-20); Calcium 8.7 mg/dL (8.4-10.2); Carbon Dioxide 25 mmol/L (22-30); Chloride 107 mmol/L (98-107); Estimated CRCL calculation 50 ml/min; Estimated Glomerular Filt Rate 51; Glucose 106 mg/dL (65-110); Potassium 3.3 mmol/L (3.4-5.0); Sodium 141 mmol/L (137-145)
[2024-09-14] MEDS: hydrALAZINE 10 MG TABLET PO ×3 (08:35→17:23)
[2024-09-14] MEDS: ASPIRIN 81 MG ENTERIC TABLET PO (08:35)
[2024-09-14] MEDS: ATORVASTATIN 40 MG TABLET PO (08:35)
[2024-09-14] MEDS: amLODIPine BESYLATE 10 MG TABLET PO (08:35)
--- NOTE | 2024-09-14 10:21 | PM.IMPN ---
Progress Note: A&P Assessment and Plan (1) Fall at home: Code(s): W19.XXXA - Unspecified fall, initial encounter; Y92.009 - Unspecified place in unspecified non-institutional (private) residence as the place of occurrence of the external cause Status: Acute (2) Noncompliance: Code(s): Z91.199 - Patient's noncompliance with other medical treatment and regimen due to unspecified reason Status: Acute (3) Uncontrolled hypertension: Code(s): I10 - Essential (primary) hypertension Status: Acute (4) History of stroke: Code(s): Z86.73 - Personal history of transient ischemic attack (TIA), and cerebral infarction without residual deficits Status: Acute (5) Rib pain on right side: Code(s): R07.81 - Pleurodynia Status: Acute (6) Hyperlipidemia: Code(s): E78.5 - Hyperlipidemia, unspecified Status: Acute (7) Elevated serum creatinine: Code(s): R79.89 - Other specified abnormal findings of blood chemistry Status: Acute (8) Leukocytosis: Code(s): D72.829 - Elevated white blood cell count, unspecified Status: Acute Plan Fall at home -patient reports he slipped while trying to turn off the light and fell. No head strike. Head CT without acute abnormality on admission -PT OT ordered. -p.r.n. Tylenol and tramadol for right rib pain. Three view chest x-ray without rib fracture on admission History of CVA -was previously treated at outside hospital when he presented with aphasia. Family reports that he has residual intermittent bursts of laughter since then. They wonder if he can be treated for this. Advised follow-up with PCP/Psychiatry. -noncompliant. Start aspirin 81 mg p.o. q.day and atorvastatin [address] head and CTA ordered results reviwed ECHO ordered will consult neurology continue PT/ OT/ ST here consider DC home with on saturday D/w ST this morning Hyperlipidemia -start atorvastatin 40 mg p.o. q.h.s. Hypertensive urgency -blood pressure 232/160 on arrival. Improved with hydralazine 10 mg IV x2 and Coreg 25 mg p.o. x1. -start amlodipine 10 mg p.o. q.day starting now. Labetalol 10 mg IV q.2 hours p.r.n. for SBP greater than 180. Do not need to be more aggressive than that since he has had severely elevated blood pressure for a long time now. watch bp carefully Bp running high overnite will order some PRN BP meds - labetalol prn monitor Leukocytosis -possibly reactive. Check procalcitonin. No symptomatology or evidence to indicate infection. Elevated serum creatinine -no prior values. Suspect he has underlying hypertensive kidney disease. -cut back fluids NS at 50 cc per hour watch bmp Elevated serum troponin -this is likely due to demand ischemia due to hypertensive urgency. Patient denies chest pain. No acute ischemia on EKG. Continue to trend. Noncompliance -heavy counseling provided with his aunt and mother in the room. Advised to him the severe consequences of chronic uncontrolled hypertension and other conditions. They appear to be grateful. The patient reports understanding. He does not have a PCP, care coordination consulted. Discussed and pt states he would be taking his meds once discharged Time Spent With Patient Time with patient: 25 - 35 minutes Subjective Date/time seen: 09/14/24 10:21 Interval history: 43-year-old male with a 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 He has not seen a PCP in a year. He lives with his mother who accompanies him today and provides history. Patient does not have medications. 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 Day prior to admission he fell in the bathroom around 9:00 p.m. while trying to turn off the light switch. He fell onto his right side but did not hit his head or have seizure activity or lose consciousness. He went to bed and when he woke up he reports he had blurry vision in the left eye but this has been going on and off for some time. Denies it currently. He had a stroke prior with aphasia and he has residual intermittent and uncontrollable bursts of laughter but otherwise can communicate clearly. 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 He had a stroke prior with aphasia and some dysphagia. Admitted for CVA and uncontrolled HTN and non compliance to BP medications ct head shows - No acute intracranial hemorrhage or suspicious mass effect. Findings within the periventricular white matter, far advanced in a patient of this age. Prior cerebral infarction within the left occipital lobe. CTA shows - Unremarkable CTA head and neck. Pt awaiting echo and neurology review Plan to continue pt/ ot / st here and consider dc james with home health services Pt is on iv fluid due to elevated creat levels bp running high all night will order prn bp meds pt is seen and examined. He is comfortable, still irritated with his laughing outburst.BP still high- requiring prn meds Review of Systems Review of Systems: Some aphasia and some dysphagia. All systems reviewed & are unremarkable except as noted in HPI and below (HPI) Exam Narrative: GENERAL: Well-appearing, well-nourished, and in no acute distress. HEAD: Normocephalic, atraumatic. EYES: PERRLA and EOMI. ENT: Nares clear, no rhinorrhea or epistaxis. Mucous membranes moist. Oropharynx without tonsillar hypertrophy exudate or other lesions. Bilateral TMs pearly ruano non-bulging NECK: Supple. No adenopathy or masses. CHEST: Clear to auscultation. No respiratory distress. No wheezes rales or rhonchi HEART: Regular rate and rhythm. No murmur heard. Normal peripheral pulses. EXTREMITIES: Normal range of motion. No edema or obvious deformity. Strength equal in bilateral upper and lower extremities (5/5) SKIN: Warm, dry, no rash. NEURO: No focal deficits. Alert and oriented x3. Cranial nerves 2-12 grossly intact PSYCH: Normal mood and affect Const: General: comfortable and no acute distress HENMT: Mouth: Yes moist mucous membranes Other: Poor oral hygiene Eyes: Pupils: Equal, round and reactive pupils present Neck: Neck: supple Resp: Effort & Inspection: normal respiratory effort Auscultation: clear to auscultation bilaterally Cardio: Rate: regular rate Rhythm: regular rhythm Neuro: Cranial nerves: Yes Equal, round and reactive pupils present Motor exam (neuro): 5/5 motor strength present throughout Other: Visual lebron intact. Cranial nerves 2-12 grossly intact Extrem: General: no edema Objective Data Vital Signs Vital Signs: Vital Signs - 24 hr 09/13/24 12:00 09/13/24 12:00 09/13/24 12:30 Temperature 98.1 F Pulse Rate 84 84 90 Respiratory Rate 18 18 Blood Pressure 168/92 H Pulse Oximetry 98 97 Oxygen Delivery Room Air 09/13/24 16:00 09/13/24 16:00 09/13/24 16:16 Temperature Pulse Rate 90 90 90 Respiratory Rate 18 Blood Pressure Pulse Oximetry 97 Oxygen Delivery Room Air 09/13/24 16:45 09/13/24 19:39 09/13/24 20:00 Temperature 98.0 F 98.6 F Pulse Rate 96 96 88 Respiratory Rate 20 18 Blood Pressure 163/66 H 182/96 H Pulse Oximetry 98 100 Oxygen Delivery 09/13/24 21:45 09/13/24 22:00 09/13/24 22:02 Temperature Pulse Rate 96 112 H 96 Respiratory Rate 18 Blood Pressure Pulse Oximetry 100 Oxygen Delivery Room Air 09/13/24 23:55 09/13/24 23:55 09/13/24 23:55 Temperature 97.7 F Pulse Rate 89 89 Respiratory Rate 16 16 Blood Pressure 184/111 H 182/110 H Pulse Oximetry 99 99 Oxygen Delivery Room Air 09/14/24 00:00 09/14/24 01:17 09/14/24 02:00 Temperature Pulse Rate 86 85 78 Respiratory Rate Blood Pressure Pulse Oximetry Oxygen Delivery 09/14/24 03:33 09/14/24 03:34 09/14/24 04:00 Temperature 98.3 F Pulse Rate 84 84 78 Respiratory Rate 20 20 Blood Pressure 174/97 H Pulse Oximetry 99 99 Oxygen Delivery Room Air 09/14/24 06:00 09/14/24 08:00 09/14/24 08:00 Temperature 97.9 F Pulse Rate 92 83 100 Respiratory Rate 16 Blood Pressure 171/98 H Pulse Oximetry 99 Oxygen Delivery Intake/Output Intake/Output: Intake & Output 09/11/24 09/12/24 09/13/24 09/14/24 23:59 23:59 23:59 23:59 Intake Total 2895 3650.5 590 Output Total 930 3150 300 Balance 1965 500.5 290 Meds/Results Medications: Active Medications Generic Name Dose Route Start Last Admin Trade Name Freq PRN Reason Stop Dose Admin Acetaminophen 500 mg 09/11/24 20:39 Acetaminophen 500 Mg Tablet PO Q4H PRN Mild Pain (1-3) or Fever Amlodipine Besylate 10 mg 09/12/24 09:00 09/14/24 08:35 Amlodipine Besylate 10 Mg Tablet PO 10 mg DAILY JEFFREY Administration Aspirin 81 mg 09/11/24 20:40 09/14/24 08:35 Aspirin 81 Mg Enteric Tablet PO 81 mg QAM JEFFREY Administration Atorvastatin Calcium 40 mg 09/11/24 20:40 09/14/24 08:35 Atorvastatin 40 Mg Tablet PO 40 mg DAILY JEFFREY Administration Hydralazine HCl 10 mg 09/13/24 13:00 09/14/24 08:35 Hydralazine 10 Mg Tablet PO 10 mg TID JEFFREY Administration Sodium Chloride 1,000 mls @ 50 mls/hr 09/12/24 14:15 09/13/24 21:47 Normal Saline Iv IV CONT 50 mls/hr .Q20H JEFFREY Administration Labetalol HCl 10 mg 09/13/24 11:02 09/13/24 22:02 Labetalol Hcl Inj 100 Mg/20 Ml Vial IV PUSH 10 mg Q4H PRN Administration hypertension Perflutren Lipid Microsphere 0 ml 09/12/24 14:14 Perflutren Lipid Microspheres 1.5 Ml Vial Diluted To 10 Ml Total Volume IV PUSH 09/15/24 14:15 ONCE PRN adequate visualization Protocol Perflutren Lipid Microsphere 0 ml 09/13/24 09:59 Perflutren Lipid Microspheres 1.5 Ml Vial Diluted To 10 Ml Total Volume IV PUSH 09/16/24 09:59 ONCE PRN adequate visualization Protocol Tramadol HCl 25 mg 09/11/24 20:39 Tramadol Hcl (*Crx) 25 Mg Tablet PO Q6H PRN Pain Rated 4-6 Radiology Results: ITS Impressions Ribs w/Chest X-Ray 09/11/24 17:11 IMPRESSION: No acute displaced right-sided rib fracture. The lungs are clear. Head CT 09/11/24 18:26 Impression: No acute intracranial hemorrhage or suspicious mass effect. Findings within the periventricular white matter, far advanced in a patient of this age. Prior cerebral infarction within the left occipital lobe. Head/Neck CTA 09/11/24 18:39 IMPRESSION: 1. Unremarkable CTA head and neck. Percent stenosis per NASCET criteria is 0% Labs Labs: Laboratory Results - last 24 hr 09/14/24 04:56 Sodium 141 Potassium 3.3 L Chloride 107 Carbon Dioxide 25 Anion Gap 9 BUN 16 Creatinine 1.75 H Estim Creat Clear Calc 50 Estimated GFR 51 L Glucose 106 Calcium 8.7
[2024-09-14] MEDS: LABETALOL HCL INJ 100 MG/20 ML VIAL 10 MG IV PUSH ×2 (11:18→17:20)
[2024-09-14] MEDS: SODIUM CHLORIDE 0.9% IV 1,000 ML 50 ML IV CONT (17:16)
[2024-09-15] VITALS (11 sets, daily range): BP systolic 152–178; BP diastolic 88–111; PULSE 66–96; RESP 18–22; TEMP 36.3–36.9; O2SAT 98–100
--- NOTE | 2024-09-15 08:48 | PM.IMPN ---
Progress Note: A&P Assessment and Plan (1) Fall at home: Code(s): W19.XXXA - Unspecified fall, initial encounter; Y92.009 - Unspecified place in unspecified non-institutional (private) residence as the place of occurrence of the external cause Status: Acute (2) Noncompliance: Code(s): Z91.199 - Patient's noncompliance with other medical treatment and regimen due to unspecified reason Status: Acute (3) Uncontrolled hypertension: Code(s): I10 - Essential (primary) hypertension Status: Acute (4) History of stroke: Code(s): Z86.73 - Personal history of transient ischemic attack (TIA), and cerebral infarction without residual deficits Status: Acute (5) Rib pain on right side: Code(s): R07.81 - Pleurodynia Status: Acute (6) Hyperlipidemia: Code(s): E78.5 - Hyperlipidemia, unspecified Status: Acute (7) Elevated serum creatinine: Code(s): R79.89 - Other specified abnormal findings of blood chemistry Status: Acute (8) Leukocytosis: Code(s): D72.829 - Elevated white blood cell count, unspecified Status: Acute Plan Systolic heart failure No reported hx of heart failure EKG 09/11 borderline t wave abnormality ant/inferior leads, LVH and ST-t changes -TTE showed: 1. Complete two-dimensional, color flow and Doppler transthoracic echocardiogram is performed. 2. Left ventricular systolic function is mildly reduced, estimated at 40-45%. Hypokinesis of inferolateral and anterolateral segments. 3. There is severely increased left ventricular wall thickness. 4. The left ventricular diastolic function is grade I diastolic dysfunction. --GDMT, treatment of HTN --Cardiology consulted given WMA's, planning outpatient ischemic eval --Repeat EKG Elevated serum troponin -Demand from Hypertensive urgency vs ischemic. T wave abnormalities on EKG and WMA's on TTE. Patient denies chest pain. No longer trending troponins. ).043<0.049>0.046 Hypertensive urgency -blood pressure 232/160 on arrival. Improved with hydralazine 10 mg IV x2 and Coreg 25 mg p.o. x1. -started amlodipine 10 mg p.o. q.day starting now. -Start carvedilol 12.5mg BID. Stopped IV Labetalol -Treatment of heart failure Fall at home -patient reports he slipped while trying to turn off the light and fell. No head strike. Head CT without acute abnormality on admission -PT OT ordered. -p.r.n. Tylenol and tramadol for right rib pain. Three view chest x-ray without rib fracture on admission History of CVA -was previously treated at outside hospital when he presented with aphasia. Family reports that he has residual intermittent bursts of laughter since then. They wonder if he can be treated for this. Advised follow-up with PCP/Psychiatry. -noncompliant. Start aspirin 81 mg p.o. q.day and atorvastatin 40 mg p.o. q.h.s. 09/11 CT head and CTA no acute findings, showed prior occipital lobe infarction Neurology consulted 09/13 TTE completed as noted continue PT/ OT/ ST here D/w ST this morning Hyperlipidemia -started atorvastatin 40 mg p.o. q.h.s. Leukocytosis -Likely reactive, 11.4>10.8. Check procalcitonin 0.1. Afebrile. No infectious symptoms Elevated serum creatinine Creatinine 1.74<2.08>1.74. UA 2+ protein. Suspect he has underlying hypertensive kidney disease. -Check UA protein/creatinine ratio -Stop fluids and recheck in AM Noncompliance -heavy counseling provided with his aunt and mother in the room. Advised to him the severe consequences of chronic uncontrolled hypertension and other conditions. They appear to be grateful. The patient reports understanding. He does not have a PCP, care coordination consulted. Discussed and pt states he would be taking his meds once discharged Heparin for DVT prophylaxis Likely discharge 09/16 if blood pressure more controlled and potassium stable. Will labs in a week to follow hypokalemia Time Spent With Patient Time: 58 minutes Subjective Date/time seen: 09/15/24 08:48 Interval history: No shortness of breath or chest pain. Denies dizziness with activity TTE Left ventricular systolic function is mildly reduced, estimated at 40-45%. Hypokinesis of inferolateral and anterolateral segments. Consulted cardiology and ok for outpatient follow up Blood pressure still uncontrolled. Started carvedilol 12.5. Cardiology started jardiance today Would likely benefit benefit from entresto but still unclear baseline creatinine Potassium 3.3, 20meq, repeating in AM. Has been on 40meq BID,. additional dose today to total 60meq Review of Systems Review of Systems: Some aphasia and some dysphagia. All systems reviewed & are unremarkable except as noted in HPI and below (HPI) Exam Narrative: General - Awake and alert. No acute distress Eyes - PERRLA, EOM intact ENT - No thrush, No erythema Neck - No noticeable or palpable swelling Lymph Nodes - No lymphadenopathy Cardiovascular - RRR no m/r/g, no JVD Lungs: Clear to auscultation, No wheezing, use of accessory muscles, no crackles or wheezes. Skin - Skin warm and dry, no wounds or rashes Abdomen - Normal bowel sounds, abdomen soft and nontender Extremities - No edema, cyanosis or clubbing Musculoskeletal - 5/5 strength, normal range of motion, no swollen or erythematous joints. Neurological ? Alert and oriented x 3, CN 2-12 grossly intact. mild dysarthria. Left eye slightly delayed motion at times (patient reports chronic left eye weakness) Psych: Normal mood and affect Objective Data Vital Signs Vital Signs: Vital Signs - 24 hr 09/14/24 10:00 09/14/24 11:18 09/14/24 11:55 Temperature 97.8 F Pulse Rate 88 89 88 Respiratory Rate 18 Blood Pressure 190/117 H Pulse Oximetry 99 Oxygen Delivery 09/14/24 12:00 09/14/24 16:00 09/14/24 16:00 Temperature 98.5 F Pulse Rate 83 104 H 81 Respiratory Rate 20 Blood Pressure 190/124 H Pulse Oximetry 100 Oxygen Delivery 09/14/24 17:20 09/14/24 17:34 09/14/24 20:00 Temperature 98.0 F Pulse Rate 87 78 84 Respiratory Rate 18 Blood Pressure 158/96 H Pulse Oximetry 99 Oxygen Delivery 09/14/24 20:00 09/14/24 20:00 09/14/24 22:00 Temperature Pulse Rate 74 77 Respiratory Rate Blood Pressure Pulse Oximetry Oxygen Delivery Room Air 09/14/24 23:48 09/15/24 00:00 09/15/24 00:00 Temperature 98.3 F Pulse Rate 89 78 Respiratory Rate 18 Blood Pressure 164/107 H Pulse Oximetry 100 Oxygen Delivery Room Air 09/15/24 02:00 09/15/24 04:00 09/15/24 04:00 Temperature 98.0 F Pulse Rate 88 89 Respiratory Rate 20 Blood Pressure 160/106 H Pulse Oximetry 99 Oxygen Delivery Room Air 09/15/24 04:00 09/15/24 06:00 09/15/24 07:45 Temperature 97.3 F L Pulse Rate 86 81 96 Respiratory Rate 18 Blood Pressure 178/111 H Pulse Oximetry 98 Oxygen Delivery Intake/Output Intake/Output: Intake & Output 09/12/24 09/13/24 09/14/24 09/15/24 23:59 23:59 23:59 23:59 Intake Total 2895 3650.5 2604.2 100 Output Total 930 3150 1650 1000 Balance 1965 500.5 954.2 -900 Meds/Results Medications: Active Medications Generic Name Dose Route Start Last Admin Trade Name Freq PRN Reason Stop Dose Admin Acetaminophen 500 mg 09/11/24 20:39 Acetaminophen 500 Mg Tablet PO Q4H PRN Mild Pain (1-3) or Fever Amlodipine Besylate 10 mg 09/12/24 09:00 09/14/24 08:35 Amlodipine Besylate 10 Mg Tablet PO 10 mg DAILY JEFFREY Administration Aspirin 81 mg 09/11/24 20:40 09/14/24 08:35 Aspirin 81 Mg Enteric Tablet PO 81 mg QAM JEFFREY Administration Atorvastatin Calcium 40 mg 09/11/24 20:40 09/14/24 08:35 Atorvastatin 40 Mg Tablet PO 40 mg DAILY JEFFREY Administration Hydralazine HCl 10 mg 09/13/24 13:00 09/14/24 17:23 Hydralazine 10 Mg Tablet PO 10 mg TID JEFFREY Administration Sodium Chloride 1,000 mls @ 50 mls/hr 09/12/24 14:15 09/14/24 17:16 Normal Saline Iv IV CONT 50 mls/hr .Q20H JEFFREY Administration Labetalol HCl 10 mg 09/13/24 11:02 09/14/24 17:20 Labetalol Hcl Inj 100 Mg/20 Ml Vial IV PUSH 10 mg Q4H PRN Administration hypertension Perflutren Lipid Microsphere 0 ml 09/12/24 14:14 Perflutren Lipid Microspheres 1.5 Ml Vial Diluted To 10 Ml Total Volume IV PUSH 09/15/24 14:15 ONCE PRN adequate visualization Protocol Perflutren Lipid Microsphere 0 ml 09/13/24 09:59 Perflutren Lipid Microspheres 1.5 Ml Vial Diluted To 10 Ml Total Volume IV PUSH 09/16/24 09:59 ONCE PRN adequate visualization Protocol Potassium Chloride 40 meq 09/15/24 09:00 Potassium Chloride 20 Meq Packet (For Liquid) PO 09/18/24 09:01 DAILY JEFFREY Tramadol HCl 25 mg 09/11/24 20:39 Tramadol Hcl (*Crx) 25 Mg Tablet PO Q6H PRN Pain Rated 4-6 Radiology Results: ITS Impressions Ribs w/Chest X-Ray 09/11/24 17:11 IMPRESSION: No acute displaced right-sided rib fracture. The lungs are clear. Head CT 09/11/24 18:26 Impression: No acute intracranial hemorrhage or suspicious mass effect. Findings within the periventricular white matter, far advanced in a patient of this age. Prior cerebral infarction within the left occipital lobe. Head/Neck CTA 09/11/24 18:39 IMPRESSION: 1. Unremarkable CTA head and neck. Percent stenosis per NASCET criteria is 0% Quality VTE Prophylaxis VTE prophylaxis: pharmacologic ordered Hospitalist [facility] Advance Care Plan I have confirmed that the patient's Advanced Care Plan is present, code status is documented, or surrogate decision maker is listed in patient medical record.: Yes Medication Reconciliation I have utilized all available resources to obtain, update and review the patients current medications (includes all prescriptions, OTC, herbals, cannabis, and nutritional supplements).: Yes
[2024-09-15] MEDS: POTASSIUM CHLORIDE 20 MEQ PACKET (FOR LIQUID) 40 MEQ PO (09:00)
--- NOTE | 2024-09-15 09:16 | ECG_ITS ---
Test Date: 2024-09-15 12:13:32 Measurements Intervals [place] Rate: 84 P: 17 MN: 143 QRS: -12 QRSD: 89 T: 209 QT: 386 QTc: 456 Interpretive Statements SINUS RHYTHM POSSIBLE LEFT ATRIAL ENLARGEMENT DELAYED PRECORDIAL R/S TRANSITION LEFT VENTRICULAR HYPERTROPHY AND ST-T CHANGE BORDERLINE T WAVE ABNORMALITY- INFERIOR LEADS BASELINE ARTIFACT- I, II, III, AVR, V1 BORDERLINE ECG Compared to ECG 09/11/2024 20:31:34 No significant changes Electronically Signed On 09-15-2024 12:50:30 [employer] by Addy Ladd D.O.
[2024-09-15] MEDS: amLODIPine BESYLATE 10 MG TABLET PO (09:35)
[2024-09-15] MEDS: ASPIRIN 81 MG ENTERIC TABLET PO (09:35)
[2024-09-15] MEDS: ATORVASTATIN 40 MG TABLET PO (09:35)
[2024-09-15] MEDS: hydrALAZINE 10 MG TABLET PO ×3 (09:35→17:03)
[2024-09-15] MEDS: carvediloL 12.5 MG TABLET PO ×2 (09:37→20:42)
[2024-09-15] MEDS: SODIUM CHLORIDE 0.9% IV 1,000 ML 50 ML IV CONT (09:49)
--- NOTE | 2024-09-15 11:17 | PM.CNCAR ---
Assessment and Plan Assessment and plan (1) Hypertensive urgency: Code(s): I16.0 - Hypertensive urgency Status: Acute Plan 1. New diagnosis of cardiomyopathy with LVEF 40-45%. Probably due to long-standing uncontrolled hypertension given severe LVH noted on echo 2. Elevated troponins. Flat. Likely demand ischemia. 3. Hypertensive urgency 4. MARGARET vs CKD 5. History of CVA with residual intermittent bursts of laughter 6. Hyperlipidemia 7. Noncompliance. PLAN: -Given milldy reduced LVEF, agree with Carvedilol. Has MARGARET vs CKD, holding off on ARNI/ACEi/ARB for now but would recommend eventually starting it at some point if renal function remains stable. Has been started on Hydralazine 10mg TID, will start Isordil with it. Hold off on Spironolactone for now given renal function. Will start Jardiance 10mg once daily. -He appears euvolemic, therefore, no need for diuretic at this time. -Patient is hoping to go home today. From my standpoint, that is okay. Can further optimize GDMT as an outpatient. -Cardiomyopathy probably due to long-standing uncontrolled hypertension given severe LVH noted on echo, however, given regional wall motion abnormality, cannot rule out underlying coronary disease. Ischemic evaluation can be done as outpatient. Will arrange follow up in my office. Recommendations and plan discussed with Hospitalist. History of Present Illness History of Present Illness Consult date/time: 09/15/24 11:17 Requesting physician: Gisel Cortes APRN Consult reason: congestive heart failure Reason For Visit: Hypertensive Urgency Narrative: We are consulted for cardiomyopathy. This is a 43 year old male with history of CVA with residual intermittent bursts of laughter, uncontrolled hypertension, hyperlipidemia, noncompliance who was admitted to [place] on 09/11 after a fall at home while trying to turn off the light switch. No syncope. Patient denies any prior cardiac problems. Does not take any medications at home. Blood pressure on arrival to ED was 232/160mmHg. Reports he has longstanding hypertension but does not take any medications at home cause he doesn't have any. It does not appear that he sees a medical provider for this. Workup also shows MARGARET vs CKD, no prior SCr levels for comparison. Troponins were minimally elevated at 0.040, 0.043, 0.049, 0.046. EKGs with sinus rhythm, LVH with secondary STTW abnormalities. Echocardiogram shows LVEF severe LVH, LVEF 40-45% with hypokinesis of the inferolateral and anterolateral wall. Review of Systems Review of Systems: All systems reviewed & are unremarkable except as noted in HPI and below (HPI) FORMERLY [facility], [facility] Past Medical History Medical History History of stroke History of hyperlipidemia History of hypertension Family History Family History Mother Hypertension Father Diabetes mellitus Sibling No active medical problems Sibling Congestive heart failure Social History Social History Smoking status: Never smoker Second hand tobacco smoke exposure: No Alcohol intake: never Substance use: never Substance use type: does not use Do You Feel Safe in your Home?: Yes Lack of Transportation: YES Lack of Food: Never True Current Housing: I Have Housing Concerned About Future Housing: No Difficulty Paying Gas/Electric Bills: No Difficulty Paying for Meds: YES Currently Unemployed: No Education: High School Diploma/GED Difficulty w/ Childcare or Family Care: No Spiritual care concerns: No Meds Home Medications and Allergies Home Medications ?Medication ?Instructions ?Recorded ?Confirmed ?Type No Home Medications 09/11/24 09/11/24 History Allergies Allergy/AdvReac Type Severity Reaction Status Date / Time No Known Allergies Allergy Verified 09/11/24 23:02 Vital Signs Vital Signs - 24 hr 09/14/24 11:18 09/14/24 11:55 09/14/24 12:00 Temperature 36.6 C Pulse Rate 89 88 83 Respiratory Rate 18 Blood Pressure 190/117 H Pulse Oximetry 99 Oxygen Delivery 09/14/24 16:00 09/14/24 16:00 09/14/24 17:20 Temperature 36.9 C Pulse Rate 104 H 81 87 Respiratory Rate 20 Blood Pressure 190/124 H Pulse Oximetry 100 Oxygen Delivery 09/14/24 17:34 09/14/24 20:00 09/14/24 20:00 Temperature 36.7 C Pulse Rate 78 84 Respiratory Rate 18 Blood Pressure 158/96 H Pulse Oximetry 99 Oxygen Delivery Room Air 09/14/24 20:00 09/14/24 22:00 09/14/24 23:48 Temperature 36.8 C Pulse Rate 74 77 89 Respiratory Rate 18 Blood Pressure 164/107 H Pulse Oximetry 100 Oxygen Delivery 09/15/24 00:00 09/15/24 00:00 09/15/24 02:00 Temperature Pulse Rate 78 88 Respiratory Rate Blood Pressure Pulse Oximetry Oxygen Delivery Room Air 09/15/24 04:00 09/15/24 04:00 09/15/24 04:00 Temperature 36.7 C Pulse Rate 89 86 Respiratory Rate 20 Blood Pressure 160/106 H Pulse Oximetry 99 Oxygen Delivery Room Air 09/15/24 06:00 09/15/24 07:45 09/15/24 09:37 Temperature 36.3 C L Pulse Rate 81 96 66 Respiratory Rate 18 Blood Pressure 178/111 H Pulse Oximetry 98 Oxygen Delivery Exam Const: General: no acute distress HENMT: Mouth: Yes moist mucous membranes Eyes: General: appearance normal, both eyes and all related structures Sclera: sclerae normal Resp: Effort & Inspection: normal respiratory effort Cardio: Rate: regular rate Rhythm: regular rhythm Heart sounds: no murmurs Neuro: Speech: normal speech Psych: Mental Status: mental status grossly normal Affect: normal affect Results Labs and Meds 09/12/24 17:18 09/14/24 04:56 Lab results: Intake and Output 09/14/24 09/15/24 09/15/24 23:59 07:59 15:59 Intake Total 1794.2 100 1067.5 Output Total 1350 1000 Balance 444.2 -900 1067.5 Intake: IV 974.2 827.5 Sodium Chloride 0.9% IV 1,000 974.2 827.5 ml @ 50 mls/hr IV CONT .Q20H [facility] Rx#:[id number] Oral 820 100 240 Output: Urine 1000 Catheter Urine 1350 External/Condom 1350 Patient Weight 09/15/24 23:59 Weight 87.9 kg
[2024-09-15] MEDS: EMPAGLIFLOZIN 10 MG TABLET PO (12:27)
[2024-09-15] MEDS: ISOSORBIDE DINITRATE 5 MG TABLET PO ×2 (12:27→17:03)
[2024-09-15] MEDS: HEPARIN SODIUM 5,000 UNITS/ML VIAL 5000 UNITS SUB-Q ×2 (14:50→20:42)
[2024-09-15 15:11] LABS: Total Protein Urine Random 63 mg/dL
[2024-09-15] MEDS: POTASSIUM CHLORIDE 20 MEQ PACKET (FOR LIQUID) PO (17:05)
--- NOTE | 2024-09-15 18:08 | PC.NURSE ---
This patient, Ross Eubanks, was transferred to [facility] on 09/15/24 at 1809. Personal belongings sent with patient. Report given to WILI Gill. Appropriate documentation sent with patient.
--- NOTE | 2024-09-15 18:11 | PC.NURSE ---
Mariana made aware of room change and updated with POC.
--- NOTE | 2024-09-15 18:47 | PC.NURSE ---
This patient, Ross Eubanks, was received from IMU on 09/15/24 at 1847. Patient/family oriented to unit policies and routines
[2024-09-16 04:54] VITALS: BP 166/90; PULSE 88; RESP 18; TEMP 37.2; O2SAT 95
[2024-09-16 08:32] LABS: Basophils Absolute Auto 0.1 K/mm3 (0.0-0.1); Basophils Percent Auto 0.9 % (0.2-1.2); Eosinophils Absolute Auto 0.5 K/mm3 (0-0.3); Eosinophils Percent Auto 4.3 % (0-4.4); Hematocrit 43.2 % (42.0-52.0); Immature Granulocyte Absolute 0.01 K/mm3 (0.00-0.031); Immature Granulocyte Percent A 0.1 % (0-0.5); Lymphocytes Absolute Auto 2.76 K/mm3 (0.9-3.2); Lymphocytes Percent Auto 23.5 % (18.3-44.2); Mean Corpuscular HGB Conc 32.4 g/dl (32-36); Mean Corpuscular Hemoglobin 27.3 pg (26-34); Mean Corpuscular Volume 84.4 fl (80-100); Mean Platelet Volume 11.2 fl (7.4-10.4); Monocytes Absolute Auto 0.8 K/mm3 (0.1-0.6); Monocytes Percent Auto 6.6 % (2.6-8.5); Neutrophils Absolute Auto 7.6 K/mm3 (1.3-6.7); Neutrophils Percent Auto 64.6 % (45.5-73.1); Platelet Count Result 304 k/mm3 (150-375); Red Blood Count 5.12 M/mm3 (4.6-6.20); Red Cell Distribution Width 14.3 % (11.5-14.5); White Blood Count 11.7 K/mm3 (4.5-10.0)
--- NOTE | 2024-09-16 08:38 | PM.DS ---
DS: Admitting Diagnosis Discharge Date 09/16/24 Admitting Diagnosis Fall, Noncompliance, HTN, CVA, Pleurodynia, HLD, Renal failure, Leukocytosis DS: Discharge Diagnosis Discharge Diagnosis (1) Fall at home: Code(s): W19.XXXA - Unspecified fall, initial encounter; Y92.009 - Unspecified place in unspecified non-institutional (private) residence as the place of occurrence of the external cause Status: Acute (2) Noncompliance: Code(s): Z91.199 - Patient's noncompliance with other medical treatment and regimen due to unspecified reason Status: Acute (3) Uncontrolled hypertension: Code(s): I10 - Essential (primary) hypertension Status: Acute (4) History of stroke: Code(s): Z86.73 - Personal history of transient ischemic attack (TIA), and cerebral infarction without residual deficits Status: Acute (5) Rib pain on right side: Code(s): R07.81 - Pleurodynia Status: Acute (6) Hyperlipidemia: Code(s): E78.5 - Hyperlipidemia, unspecified Status: Acute (7) Elevated serum creatinine: Code(s): R79.89 - Other specified abnormal findings of blood chemistry Status: Acute (8) Leukocytosis: Code(s): D72.829 - Elevated white blood cell count, unspecified Status: Acute Plan Systolic heart failure No reported hx of heart failure EKG 09/11 borderline t wave abnormality ant/inferior leads, LVH and ST-t changes -TTE showed: 1. Complete two-dimensional, color flow and Doppler transthoracic echocardiogram is performed. 2. Left ventricular systolic function is mildly reduced, estimated at 40-45%. Hypokinesis of inferolateral and anterolateral segments. 3. There is severely increased left ventricular wall thickness. 4. The left ventricular diastolic function is grade I diastolic dysfunction. --GDMT, treatment of HTN --Cardiology consulted given WMA's, planning outpatient ischemic eval --Repeat EKG 09/16/24: Follow up with Cardiology as outpt. Plan is to continue initiating GDMT as outpt. ECHO showing EF of 40-45% w/Grade 1 Diastolic dysfunction. Cards recommends continuing Carvedilol and holding off on ACEI/ARNI/ARB for now. Wants to wait and see if renal function remains stable. Recommends continuing Idordil with Hydralazine. Continue Jardiance and hold off on spironolactone. No need for diuretic at this time. OK to discharge per Cardiology. Follow up with Marcelle Parikh. Elevated serum troponin -Demand from Hypertensive urgency vs ischemic. T wave abnormalities on EKG and WMA's on TTE. Patient denies chest pain. No longer trending troponins. ).043<0.049>0.046 Hypertensive urgency -blood pressure 232/160 on arrival. Improved with hydralazine 10 mg IV x2 and Coreg 25 mg p.o. x1. -started amlodipine 10 mg p.o. q.day starting now. -Start carvedilol 12.5mg BID. Stopped IV Labetalol -Treatment of heart failure 09/16/24: See above recommendations from Cardiology regarding which medications to continue. Fall at home -patient reports he slipped while trying to turn off the light and fell. No head strike. Head CT without acute abnormality on admission -PT OT ordered. -p.r.n. Tylenol and tramadol for right rib pain. Three view chest x-ray without rib fracture on admission History of CVA -was previously treated at outside hospital when he presented with aphasia. Family reports that he has residual intermittent bursts of laughter since then. They wonder if he can be treated for this. Advised follow-up with PCP/Psychiatry. -noncompliant. Start aspirin 81 mg p.o. q.day and atorvastatin 40 mg p.o. q.h.s. 09/11 CT head and CTA no acute findings, showed prior occipital lobe infarction Neurology consulted 09/13 TTE completed as noted continue PT/ OT/ ST here D/w ST this morning 09/16/24: Was evaluated by neurology who advises to continue with ASA. Hyperlipidemia -started atorvastatin 40 mg p.o. q.h.s. 09/16/24: Continue for home use. Leukocytosis -Likely reactive, 11.4>10.8. Check procalcitonin 0.1. Afebrile. No infectious symptoms Elevated serum creatinine Creatinine 1.74<2.08>1.74. UA 2+ protein. Suspect he has underlying hypertensive kidney disease. -Check UA protein/creatinine ratio -Stop fluids and recheck in AM Noncompliance -heavy counseling provided with his aunt and mother in the room. Advised to him the severe consequences of chronic uncontrolled hypertension and other conditions. They appear to be grateful. The patient reports understanding. He does not have a PCP, care coordination consulted. Discussed and pt states he would be taking his meds once discharged Heparin for DVT prophylaxis Likely discharge 09/16 if blood pressure more controlled and potassium stable. 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 He has not seen a PCP in a year. He lives with his mother who accompanied him to the hospital and was the primary source of information as pt is not deemed to be a reliable source. Patient does not have medications. The Day prior to admission he fell in the bathroom around 9:00 p.m. while trying to turn off the light switch. He fell onto his right side but did not hit his head or have seizure activity or lose consciousness. He went to bed and when he woke up he reports he had blurry vision in the left eye but this had also been going on and off for some time. He had a stroke prior with aphasia and he has residual intermittent and uncontrollable bursts of laughter but otherwise can communicate clearly. Upon evaluation in the ER the patient reported that he had no complaints other than achiness at the right lower ribs. Three view x-ray of the right ribs was performed without acute fracture demonstrated. 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 Blood pressure on arrival 232/160 and his mother confirms this is how it has been for a long time. He was given Coreg 25 mg p.o. x1 and hydralazine 10 mg IV x2 and his blood pressure systolic improved to 170. Further laboratory workup revealed a WBC of 11.4, hemoglobin 13.8, serum creatinine 1.74, BUN 16, troponin 0.040. He was admitted to the hospital for continued workup and management with neuro, Cardiology and medicine services. He had an ECHO that demonstrated an EF of 40-45% and Grade 1 diastolic dysfunction. Cardiology has evaluated and has started him on Carvedilol, Hydralazine, Isordil, and Jardiance. They recommend following up as outpt for re-evaluation of starting remaining GDMT therapy and ischemic evaluation. It is believed that the elevated and uptrend of Troponin was due to demand ischemia only and not a true NSTEMI. Neurology evaluated pt as well and recommends continuing asa therapy. Pt's overall medical situation is felt to be due to his non-compliance with medical regimens and most likely as he is self pay. He has been seen by Care coordination who has been provided resources including SDOH, Clinics, PMD, and medication resources. Samueldawoodyadi has met with pt and will follow for financial assistance and possible IPA application. He is deemed stable for discharge to home at this time and is encouraged and counseled for compliance and follow up. Status at Discharge Cognitive/behavioral status at discharge: At baseline Functional status at discharge: independent ambulation Overall status at discharge: patient is back to baseline Time Spent with Patient Time attestation: Total time spent providing and/or coordinating discharge services: Time spent: Greater than 30 minutes Specific discharge activities: Follow up, medications, compliance with therapies, return to ER precautions Exam Narrative: General - Awake and alert. No acute distress Eyes - PERRLA, EOM intact ENT - No thrush, No erythema Neck - No noticeable or palpable swelling Lymph Nodes - No lymphadenopathy Cardiovascular - RRR no m/r/g, no JVD Lungs: Clear to auscultation, No wheezing, use of accessory muscles, no crackles or wheezes. Skin - Skin warm and dry, no wounds or rashes Abdomen - Normal bowel sounds, abdomen soft and nontender Extremities - No edema, cyanosis or clubbing Musculoskeletal - 5/5 strength, normal range of motion, no swollen or erythematous joints. Neurological ? Alert and oriented x 3, CN 2-12 grossly intact. mild dysarthria. Left eye slightly delayed motion at times (patient reports chronic left eye weakness) Psych: Normal mood and affect DS: Data Data Completed and Pending Completed studies during hospitalization: ITS Impressions Ribs w/Chest X-Ray 09/11/24 17:11 IMPRESSION: No acute displaced right-sided rib fracture. The lungs are clear. Head CT 09/11/24 18:26 Impression: No acute intracranial hemorrhage or suspicious mass effect. Findings within the periventricular white matter, far advanced in a patient of this age. Prior cerebral infarction within the left occipital lobe. Head/Neck CTA 09/11/24 18:39 IMPRESSION: 1. Unremarkable CTA head and neck. Percent stenosis per NASCET criteria is 0% Labs on day of discharge: Labs from last 24 hours 09/16/24 09/15/24 08:20 14:50 WBC 11.7 H RBC 5.12 Hgb 14.0 Hct 43.2 MCV 84.4 MCH 27.3 MCHC 32.4 RDW 14.3 Plt Count 304 MPV 11.2 H Immature Gran % (Auto) 0.1 Neut % (Auto) 64.6 Lymph % (Auto) 23.5 Storey % (Auto) 6.6 Eos % (Auto) 4.3 Baso % (Auto) 0.9 Lymph # (Auto) 2.76 Storey # (Auto) 0.8 H Eos # (Auto) 0.5 H Baso # (Auto) 0.1 Abs Immat Gran (auto) 0.01 Absolute Neuts (auto) 7.6 H Absolute Nucleated RBC 0.000 Nucleated RBC % 0.0 Sodium Pending Potassium Pending Chloride Pending Carbon Dioxide Pending Anion Gap Pending BUN Pending Creatinine Pending Estim Creat Clear Calc Pending Estimated GFR Pending Glucose Pending Calcium Pending Total Bilirubin Pending AST Pending ALT Pending Alkaline Phosphatase Pending Total Protein Pending Albumin Pending U Random Total Protein 63 Discharge Plan Discharge Attending physician on discharge: Brie Isbell Consulting providers: Venkata Olsen; Marcelle Parikh Discharging Clinician: Brie Isbell Anticipated Discharge Date/Time: 09/16/24 08:57 Patient Disposition: Home, Self-Care Activity: as tolerated Diet: heart healthy and low sodium Discharge Instructions: Take all medications as ordered. Follow up with a PCP and cardiology as directed. Return to ER for any worsening of symptoms. You have been provided some resources from our Care coordination department and we ask that you pick a provider for primary care from the list and make an appointment with them to establish care and follow up. Your health depends upon you taking the medications prescribed. If you do not, you are placing your health in jeopardy and even your life. Patient Instructions: Antibiotic Form, Hypertensive Crisis (GEN) Patient Language: Icelandic Stand Alone Forms: General Discharge Information Follow-up/Referrals: Marcelle Parikh MD [Physician] - Call for Appointment Discharge Medications: New atorvastatin 40 mg Tablet 40 mg PO DAILY Qty: 30 1RF hydralazine 10 mg Tablet 10 mg PO TID Qty: 90 1RF carvedilol [Coreg] 12.5 mg Tablet 12.5 mg PO Q12HR Qty: 30 1RF aspirin 81 mg Tablet,Delayed Release (Dr/Ec) 81 mg PO QAM Qty: 30 1RF amlodipine 10 mg Tablet 10 mg PO DAILY Qty: 30 1RF isosorbide dinitrate 5 mg Tablet 5 mg PO TID Qty: 90 1RF Jardiance 10 mg Tablet 10 mg PO DAILY Qty: 30 1RF Date of admission: 09/14/24 13:27 Primary Care Provider: PHYSICIAN,[employer]ACHINE Admitting Provider: Faviola Virgen Attending physician on admission: Brie Isbell Condition: Stable Quality VTE Prophylaxis VTE prophylaxis: pharmacologic ordered Hospitalist MIPS Heart Failure (Exclusion) Patient has history of Heart Transplant or Left Ventricular Assistive Device?: No IF YES, STOP HERE Heart Failure (Qualifier) Patient has current or prior documentation of LVEF less than or equal to 40%, or mod/servere depressed LVSF?: Yes IF NO, STOP HERE If Yes, Heart Failure (Qualifier) Patient was prescribed or already taking an Angiotensin-Converting Enzyme (JOANN) Inhibitor, or Antiotensin Receptor Ton (ARB): No Patient was prescribed or already taking bisoprolol, carvedilol, or sustained release metoprolol succinate: Yes If Medications not prescribed/taking Reason patient not prescribed/taking JOANN or ARB: Medical reasons: allergy, intolerance, contraindication or other (Cardiology wants to wait to start medication as outpt.)
[2024-09-16 08:45] LABS: Alanine Aminotransferase 21 U/L (6-50); Albumin Level 3.8 g/dL (3.5-5.1); Alkaline Phosphatase 76 U/L (38-126); Anion Gap 9 mmol/L (4-12); Aspartate Amino Transferase 20 U/L (17-59); Bilirubin,Total 0.7 mg/dL (0.2-1.3); Blood Urea Nitrogen 18 mg/dL (9-20); Calcium 9.4 mg/dL (8.4-10.2); Carbon Dioxide 26 mmol/L (22-30); Chloride 106 mmol/L (98-107); Estimated CRCL calculation 49 ml/min; Estimated Glomerular Filt Rate 51; Glucose 102 mg/dL (65-110); Potassium 3.6 mmol/L (3.4-5.0); Sodium 141 mmol/L (137-145)
[2024-09-16 08:54] VITALS: BP 173/110; PULSE 96; RESP 16; TEMP 37; O2SAT 98
[2024-09-16 08:57] VITALS: PULSE 86
[2024-09-16] MEDS: ASPIRIN 81 MG ENTERIC TABLET PO (08:57)
[2024-09-16] MEDS: EMPAGLIFLOZIN 10 MG TABLET PO (08:57)
[2024-09-16] MEDS: ISOSORBIDE DINITRATE 5 MG TABLET PO (08:57)
[2024-09-16] MEDS: carvediloL 12.5 MG TABLET PO (08:57)
[2024-09-16] MEDS: ATORVASTATIN 40 MG TABLET PO (08:57)
[2024-09-16] MEDS: hydrALAZINE 10 MG TABLET PO (08:57)
[2024-09-16] MEDS: POTASSIUM CHLORIDE 20 MEQ PACKET (FOR LIQUID) 40 MEQ PO (08:57)
[2024-09-16] MEDS: amLODIPine BESYLATE 10 MG TABLET PO (08:58)
== END 2024-09-16 11:10 | disposition home or self-care (01) | DRG 199 ==
LOC: ANHED 20:48 → ANHIMU 21:07 → ANH3MED 09-15 17:57
PROVIDERS: Family Medicine; Nurse Practitioner Acute Care; Physician Assistant; Admitting Provider General Practice; Emergency Provider Physician Assistant; Visit Provider Nurse Practitioner Adult Health
DX: I16.0 Hypertensive urgency (principal); I69.398 Other sequelae of cerebral infarction; I24.89 Other forms of acute ischemic heart disease; E78.5 Hyperlipidemia, unspecified; Z91.148 Patient's other noncompliance with medication regimen for other reason; W19.XXXA Unspecified fall, initial encounter; I69.320 Aphasia following cerebral infarction; Z28.21 Immunization not carried out because of patient refusal; R07.81 Pleurodynia; D72.829 Elevated white blood cell count, unspecified; I42.9 Cardiomyopathy, unspecified; I11.0 Hypertensive heart disease with heart failure; I50.20 Unspecified systolic (congestive) heart failure
CPT/HCPCS: 36415; 70450; 70496; 70498; 71101; 80048; 80053; 80307; 81001; 81050; 82570; 82948; 83735; 84145; 84156; 84300; 84484; 85025; 85610; 85730; 92610; 93005; 93306; 96361; 96374; 96375; 96376; 97161; 97165; 99285; A9270; G0378; J0360; J1644; J7030; J7120; Q9967